=== PATIENT | female | born 1945 | race Caucasian/White ===

== ENCOUNTER → 2016-10-19 14:37 | Outpatient (CLI) | payer MEDICARE | END | disposition home or self-care (01) | LOC: D.MAMMO 10-16 16:00 | DX: Z12.31 Encounter for screening mammogram for malignant neoplasm of breast (principal) ==

== ENCOUNTER 2016-12-07 06:08 | Day surgery (SDC) | payer MEDICARE ==
[2016-12-04 15:21] LABS: HEMOGLOBIN 15.2 g/dL (12-16); MCH 33.9 pg (26.0-34.0); MCHC 34.5 g/dL (31.0-37.0); MEAN PLATELET VOLUME 9.9 fL (7.4-10.4); RBC 4.49 10x6/uL (4.00-5.40); RDW 12.4 % (11.5-14.5); WBC 7.2 10x3/uL (4.8-10.8)
[2016-12-04 15:58] LABS: ANION GAP 12.9 mmol/L (8-16); CALCIUM 9.3 mg/dL (8.5-10.1); CARBON DIOXIDE 30.7 mmol/L (21.0-32.0); CREATININE - SERUM 0.9 mg/dL (0.6-1.3); POTASSIUM - SERUM 4.6 mmol/L (3.5-5.1)
[~2016-12-07] VITALS: Ht 152.4 cm; Wt 64.4 kg
[~2016-12-07 06:08] MED LIST: CELEXA20 MG PO; SYNTHROID25 MCG PO; ZIAC 5-6.25 MG1 TAB PO
[2016-12-07 07:04] VITALS: BP 137/60; Ht 152.4 cm; Wt 64.4 kg
[2016-12-07] MEDS ORDERED: HYDROCODON-ACE1 EAC7 PO (09:42)
--- NOTE | 2016-12-07 12:13 | NUR ---
1110 PT COMPLAINS OF FEELING WARM. COVERS PULLED BACK. ORAL TEMPERATURE 97.9. PT STATES ALSO IS SLIGHTLY NAUSEATED. COOL WET COMPRESSES TO FOREHEAD & NECK. Noreen FLAHERTY R.N.
--- NOTE | 2016-12-07 14:13 | NUR ---
1220 REPORT TO Neal NUNEZ R.N.. Noreen FLAHERTY R.N.
--- NOTE | 2016-12-07 14:14 | NUR ---
1316 STATES CONTINUES TO FEEL NAUSEATED. ZOFRAN 4MG/2ML IV FOLLOWED WITH 10MML NACL FLUSH. IV #2 COMPLETE & CLAMPED. Noreen Rey.NYemi 1355 STATES STILL FEELS NAUSEATED. IV BAG # 3: LR 1000ML UP & INFUSING. SERVED ICE CHIPS. Noreen FLAHERTY R.N. 1405 REPORT TO Aisha FUENTES R.N.. Noreen FLAHERTY R.N.
--- NOTE | 2016-12-07 18:37 | OP ---
PATIENT NAME: DESIRAE MANCERA MEDICAL RECORD: [id number] :46 LOCATION:D.[facility]AC, LOCATED [facility]IN [facility] ADMISSION DATE: SURGEON: GILBERTO MANCERA MD DATE OF OPERATION: 12/07/2016 PREOPERATIVE DIAGNOSES: 1. Cholelithiasis without obstruction. 2. Right upper quadrant pain. 3. Essential hypertension. 4. Gastroesophageal reflux disease. POSTOPERATIVE DIAGNOSES: 1. Cholelithiasis without obstruction. 2. Right upper quadrant pain. 3. Essential hypertension. 4. Gastroesophageal reflux disease. PROCEDURE PERFORMED: Laparoscopic cholecystectomy. ANESTHESIA: General. COMPLICATIONS: None. SPECIMENS: Gallbladder. Case is clean contaminated. ESTIMATED BLOOD LOSS: 20 cc. OPERATIVE COURSE: After consent was obtained, the patient was taken to the operating room and placed in supine position on the operating table. Next, general anesthesia was given via endotracheal intubation. After a timeout was performed that confirmed the correct patient and procedure, the abdomen was prepped and draped in the typical sterile fashion. Local anesthetic was injected just above the umbilicus. A stab incision was made with the 11-blade scalpel. Using a 5-mm bladeless optical trocar, the abdomen was entered under direct laparoscopic vision. Adequate pneumoperitoneum was achieved. The abdominal cavity was inspected. No evidence of bowel injury. No evidence of bleeding. The patient was then placed in the steep reverse Trendelenburg position. All remaining trocars were then placed after the administration of local anesthetic, two 5-mm trocars in the right upper quadrant and 11-mm trocar in the subxiphoid position. The fundus of the gallbladder was grasped and retracted cephalad. The infundibulum was grasped and retracted laterally. The peritoneum was incised using electrocautery. Blunt dissection was performed with a [place] dissector until the critical view was obtained, cystic duct lateral, cystic artery medially, liver in the posterior window. Three clips were placed in the proximal cystic duct, 1 clip distal, and 2 clips were placed in the proximal cystic artery. The duct and artery were then transected with laparoscopic Metzenbaum scissors. The remaining portion of the gallbladder was then dissected off the liver bed using electrocautery. Once complete, it was grasped with the tenaculum, removed through the 11-mm trocar and sent for permanent pathology. Next, the operative field was copiously irrigated and suctioned. Careful attention was paid to hemostasis, which was obtained in the liver bed using electrocautery. The operative field was again copiously irrigated and suctioned. There was no evidence of bleeding, no evidence of bile OPERATIVE REPORT [id number] DESIRAE MANCERA leak. All clips, the 3 clips were intact on the cystic duct. The 2 clips were intact on the cystic artery. The remaining portion of abdominal cavity was irrigated and suctioned as well. The abdominal cavity was then inspected, there was no evidence of bowel injury. No evidence of bleeding, no evidence of bile leak. At this time, all remaining instruments removed. The abdomen was desufflated. Trocars removed. Skin was closed with 4-0 Stratafix, Mastisol and Steri-Strips. At the end of the case, all needle and instrument counts were correct. No complications occurred. The patient was extubated and transferred to the PACU in stable condition. TRANSINT:[id number] Voice Confirmation ID: [id number] DOCUMENT ID: [id number] GILBERTO MANCERA MD at 1837 CC: [id number] DICTATION DATE: 12/07/16 0941 UNIT OPERATOR: 12/07/16 1159 [facility] 12/07/16 [facility] [address] [place] [address]
== END 2016-12-07 16:05 | disposition home or self-care (01) ==
LOC: D.OPS 06:08 → D.PAN 07:50 → D.OPS 08:15
PROVIDERS: Anesthesiology
DX: K80.20 Calculus of gallbladder without cholecystitis without obstruction (principal); R10.11 Right upper quadrant pain; I10 Essential (primary) hypertension; K21.9 Gastro-esophageal reflux disease without esophagitis; E03.9 Hypothyroidism, unspecified; Z01.812 Encounter for preprocedural laboratory examination

== ENCOUNTER → 2017-06-30 09:28 | Outpatient (CLI) | payer MEDICARE ==
[2016-12-07 07:04] VITALS: BMI 27.7
[~2017-06-30 09:28] MED LIST changes: +ASPIRIN81 MG PO; +HYDROCODON-ACE1 EAC7 PO; +LOPRESSOR25 MG PO; +OMEPRAZOLE20 M1 PO; +PLAVIX75 MG PO
[2017-06-30 10:46] LABS: % SATURATION 35 % (15-55); IRON 125 ug/dl (35-150); TOTAL IRON BIND CAPACITY 352 ug/dl (260-445); UNSAT IRON BIND CAPACITY 227 ug/dl (150-375)
[2017-06-30 10:48] LABS: ALBUMIN 4.2 g/dL (3.4-5.0); BILIRUBIN - DIRECT 0.15 mg/dL (0.00-0.30); BILIRUBIN - INDIRECT 0.45 mg/dL (0.00-1.00); BILIRUBIN - TOTAL 0.6 mg/dL (0.2-1.3); PROTEIN - SERUM 7.5 g/dL (6.4-8.2)
[2017-07-01 10:19] LABS: ALPHA FETOPROTEIN -(TUMOR MRK) 5.4 ng/mL (0.0-8.3)
[2017-07-01 11:18] LABS: ANA REFLEX - DIRECT Negative (Negative)
[2017-07-02 16:13] LABS: SMOOTH MUSCLE ABS (ACTIN) 19 Units (0-19)
== END | disposition home or self-care (01) ==
LOC: D.LAB 09:28
PROVIDERS: Internal Medicine Gastroenterology
DX: D64.9 Anemia, unspecified (principal); R93.2 Abnormal findings on diagnostic imaging of liver and biliary tract

== ENCOUNTER 2017-07-20 10:42 | Inpatient (IN) | payer MEDICARE ==
[~2017-07-20] VITALS: Ht 152.4 cm; Wt 70.2 kg
--- NOTE | ~2017-07-20 | OP ---
PATIENT NAME: DESIRAE MANCERA MEDICAL RECORD: [id number] :46 LOCATION:D.M2 D.2122 ADMISSION DATE:07/21/17 SURGEON: NADER JIMÉNEZ MD DATE OF OPERATION: 07/21/2017 PTCA/STENT REPORT: For cath report please see report dictated yesterday. DESCRIPTION OF PROCEDURE: After a 6-Icelandic sheath was placed into the left femoral artery, a hockey stick guide catheter with side holes provided fair guide catheter support and this was replaced a Whisper wire across the multiple areas of 90% stenosis down to this portion, then we used a 1.5 [place] balloon, was placed distally. Using the balloon as an exchange catheter, changed out for a PT [place] wire. The 1.5 balloon was then used as the pre-deployment balloon up and down the right coronary artery. Next, a 2.5 x 50 mm [place] was again used as a pre-deployment balloon up and down from the mid right all the way back to the ostium of the right coronary. Finally, stents were placed in the following fashion. A 3.0 x 30 mm Integrity nondrug-eluting stent up to 14 atmospheres from the mid to proximal third, from the proximal third to just before the ostium a 3.0 x 30 mm Integrity stent. Finally, the ostium was addressed with a 3.0 x 8 mm Integrity nondrug-eluting stent. Final angiography revealed excellent resolution of multiple areas of 90% plus stenosis, no significant residual. CABRERA flow was 3 throughout the procedure. Heparin was used in the case. The patient placed on Plavix. Sheath closed with ExoSeal device. TRANSINT:[id number] Voice Confirmation ID: [id number] DOCUMENT ID: [id number] NADER JIMÉNEZ MD at 0950 CC: [id number] DICTATION DATE: 07/22/17 1451 REAL ESTATE ACCOUNT EXECUTIVE: 07/22/17 1513 ADM IN [place] [id number] [place] [address]
--- NOTE | ~2017-07-20 | OP ---
PATIENT NAME: DESIRAE MANCERA MEDICAL RECORD: [id number] :46 LOCATION:D.M2 D.2122 ADMISSION DATE:07/21/17 SURGEON: NADER JIMÉNEZ MD DATE OF OPERATION: 07/21/2017 PROCEDURE: Left heart catheterization, selective coronary angiography, initially right radial approach, later right femoral artery approach. CATHETERS: A 5-Indian sheath, 5/4 left and right Frederick, 5/4 pig. The procedure was well tolerated. The patient returned to the aguiar, sheath removed, and ExoSeal device and TR band was placed. FINDINGS: Left ventriculography in 30-degree CONDON view, inferobasal hypokinesis. Overall function is preserved at 50%. CORONARY ANATOMY: LEFT MAIN: Left main probably has ostial 50% to 60% stenosis with dampening upon injection. LAD: He has complex stenosis in its mid portion with excellent target distally. CIRCUMFLEX: Moderate-sized circumflex, 2 sequential stenosis of 80% with good target distally. RIGHT CORONARY ARTERY: Dominant artery has multiple areas of 90% stenosis. Obviously infarct related artery with CABRERA flow 3 distally. IMPRESSION: Multivessel coronary artery disease. Preserved LV systolic function with no wall motion abnormality. Probably best suited for coronary artery bypass grafting. Dr. Ferris was consulted for that purpose. TRANSINT:[id number] Voice Confirmation ID: [id number] DOCUMENT ID: [id number] NADER JIMÉNEZ MD at 0950 CC: [id number] DICTATION DATE: 07/21/17 1445 LICENSED ELECTRICIAN: 07/21/17 1607 ADM IN [place] [id number] [place] [address]
--- NOTE | ~2017-07-20 | HEMODYNAMI ---
PATIENT:DESIRAE MANCERA MEDICAL RECORD: [id number] : 47 LOCATION:[facility] [address] [id number] ADMISSION DATE: 07/21/17 Generatedon:07/22/201714:51 Patient name: DESIRAE MANCERA Patient #: [id number] SSN: : 1945 Date of study: 07/22/2017 Page: Of Hemodynamic Procedure Report Patient Data Patient Demographics Procedure consent was obtained First Name: DESIRAE Gender: Female Last Name: FIORDALIZA : 1945 Middle Initial: M Age: 71 year(s) Patient #: [id number] Race: Unknown Additional ID: [id number] Contact details Address: [address] [place] [address] State: [place] City: [place] Zip code: [address] Admission Admission Data Admission Date: 07/21/2017 Admission Time: 16:30 Admit Source: Other Room #: D[facility] Lab Results Lab Result Date: 07/21/2017 Lab Result Time: 0:00 Biochemistry Name Units Result Min Max BUN mg/dl 7 --(*---)-- 7 18 Creatinine mg/dl 0.7 --(*---)-- 0.6 1.3 CBC Name Units Result Min Max Hemoglobin g/dl 14.4 --(*---)-- 13.5 17.5 Procedure Procedure Types Cath Procedure PCI Procedure Coronary Stent Coronary Stent Initial Miscellaneous Procedures Moderate Sedation up to 45 minutes Procedure Description Procedure Date Procedure Date: 07/22/2017 Procedure Start Time: 14:14 Procedure End Time: 14:50 Procedure Staff Name Function Israel Alston MD Performing Physician Josie Hebert RT Monitor Tricia Pop RT Scrub Adam Guzman RN Nurse Procedure Data Cath Procedure Fluoroscopy Diagnostic fluoroscopy Total fluoroscopy Time: time: 12.9 min 12.9 min Diagnostic fluoroscopy Total fluoroscopy dose: dose: 1286 mGy 1286 mGy Contrast Material Contrast Material Type Amount (ml) Isovue 300 129 Entry Location Entry Primary Successful Side Size Upsize Upsize Entry Closure Succes sful Closure Location (Fr) 1 (Fr) 2 (Fr) Remarks Device Remarks Femoral Left 6 Fr Exoseal artery Short Estimated blood loss: 10 ml Procedure Complications No complications Procedure Medications Medication Administration Route Dosage Oxygen NC 2 l/min Lidocaine 2% added to field 20 Heparin Flush Bag added to field 2 bags (1000units/500ml NS) 0.9% NaCl I.V. 100 ml/hr Plavix P.O. 75 mg Fentanyl I.V. 50 mcg Versed I.V. 1 mg Fentanyl I.V. 50 mcg Versed I.V. 1 mg Fentanyl I.V. 50 mcg Fentanyl I.V. 50 mcg Heparin Flush Bag added to field 2 bags (1000units/500ml NS) Lopressor I.V. 2.5 mg Hemodynamics Rest HGB: 14.4 (g/dl) Heart Rate: 88 (bpm) Snapshots Pre Cath Intra NCS Post Cath Vital Signs Time Heart Resp SPO2 etCO2 NIBP (mmHg) Rhythm Pain Sedation Rate (ipm) (%) (mmHg) Status Level (bpm) 13:13:45 90 29 96 0 160/82(122) NSR 0 (11) 10(A) , No pain 13:18:05 63 23 96 33.6 157/78(111) NSR 0 (11) 10(A) , No pain 13:22:25 78 20 96 32.9 157/80(116) NSR 0 (11) 10(A) , No pain 13:26:45 79 20 95 26.2 153/77(118) NSR 0 (11) 10(A) , No pain 13:31:07 74 19 93 0 145/79(118) NSR 0 (11) 10(A) , No pain 13:35:26 78 18 94 36.7 142/78(114) NSR 0 (11) 10(A) , No pain 13:39:42 80 16 96 35.9 144/77(114) NSR 0 (11) 10(A) , No pain 13:43:54 77 17 96 0 144/74(114) NSR 0 (11) 10(A) , No pain 13:48:11 77 16 97 38.9 142/73(106) NSR 0 (11) 10(A) , No pain 13:52:28 74 18 97 34.4 140/75(110) NSR 0 (11) 10(A) , No pain 13:56:43 77 18 97 0 138/79(111) NSR 0 (11) 10(A) , No pain 14:01:00 81 17 97 38.1 148/80(103) NSR 0 (11) 10(A) , No pain 14:05:16 71 16 97 0 136/74(110) NSR 0 (11) 10(A) , No pain 14:09:32 75 16 97 37.4 133/75(113) NSR 0 (11) 10(A) , No pain 14:13:44 68 17 97 0 139/73(109) NSR 0 (11) 10(A) , No pain 14:18:02 76 16 97 33.7 150/72(118) NSR 0 (11) 9(A) , No pain 14:22:16 100 17 97 40.4 150/88(118) NSR 0 (11) 9(A) , No pain 14:26:28 82 15 99 41.1 141/80(109) NSR 0 (11) 9(A) , No pain 14:30:39 66 15 99 38.2 130/76(113) NSR 0 (11) 9(A) , No pain 14:34:52 78 16 99 41.1 135/73(111) NSR 0 (11) 9(A) , No pain 14:39:07 80 16 98 31.4 148/78(115) NSR 0 (11) 9(A) , No pain 14:43:21 82 16 99 38.9 144/84(119) NSR 0 (11) 9(A) , No pain 14:47:39 80 16 99 39.7 150/78(111) NSR 0 (11) 9(A) , No pain Medications Time Medication Route Dose Verified Delivered Reason Notes Effectiveness by by 13:17:37 Plavix P.O. 75 mg Israel Medina for [facility] Floyd Guzman RN antiplatelet therapy 13:18:44 Oxygen NC 2 Israel Medina used for l/min [facility] Floyd Guzman RN procedure 13:18:53 Lidocaine 2% added 20ml Israel Wood used for to vial [place] Gamaliel procedure field MD STORY 13:18:59 Heparin Flush added 2 Israel Owensory used for Bag to bags [place] Gamaliel procedure (1000units/500ml field MD STORY NS) 13:19:08 0.9% NaCl I.V. 100 Israel Tranie Per physician ml/hr [facility] Floyd Guzman RN, MD 14:01:22 Fentanyl I.V. 50 Israel Medina for sedation mcg [facility] Floyd Guzman RN, MD 14:01:28 Versed I.V. 1 mg Israel Tranie for sedation [facility] Floyd Guzman RN, MD 14:12:39 Fentanyl I.V. 50 Israel Tranie for sedation mcg [facility] Floyd Guzman RN, MD 14:12:45 Versed I.V. 1 mg Israel Tranie for sedation [facility] Floyd Guzman RN, MD 14:14:42 Fentanyl I.V. 50 Israel Tranie for sedation jordon Olivarez RN, MD 14:17:38 Fentanyl I.V. 50 Israel Tranie for sedation mcg [facility] Floyd Guzman RN, MD 14:17:49 Heparin Flush added 2 Israel Medina for Bag to bags [facility] Floyd Guzman RN anticoagulation (1000units/500ml field STORY NS) 14:25:54 Lopressor I.V. 2.5 Israel Tranie Per physician mg [facility]. Floyd Guzman RN, MD Procedure Log Time Note 12:58:24 Josie Counts RT(R) sent for patient. Start room use. 12:58:25 Time tracking: Regular hours 12:58:28 Plan of Care:Hemodynamics will remain stable., Cardiac rhythm will remain stable., Comfort level will be maintained., Respiratory function will remain adequate., Patient/ family verbilizes understanding of procedure., Procedure tolerated without complication., Recovers from procedure without complications.. 13:12:27 Patient received from Med II to CCL 2 Alert and oriented. Tansferred to table in Supine position. 13:12:28 Warm blankets applied, and prasanth hugger turned on for patient comfort. 13:12:29 Correct patient and procedure confirmed by team. 13:12:30 Signed procedure consent form obtained from patient. 13:12:31 ECG and BP/O2 sat monitors applied to patient. 13:12:32 Vital chart was started 13:12:34 Baseline sample Acquired. 13:12:38 Rhythm: sinus rhythm 13:12:39 Full Disclosure recording started 13:12:46 H&P Date Dictated: 07/22/2017 Within 30 days and on chart.. 13:12:47 Pre-procedure instructions explained to patient. 13:12:47 Pre-op teaching completed and patient verbalized understanding. 13:12:48 Family in waiting room. 13:12:50 Patient NPO since Midnight. 13:12:53 Is the patient allergic to Iodine/contrast media? No. 13:12:53 Was the patient premedicated? No 13:12:54 Is patient on blood thinner?Yes 13:12:57 ACC The patient was administered the following blood thiners within the last 24 hours: ACCPlavix 13:12:59 Patient diabetic? No. 13:13:01 Previous problem with sedation/anesthesia? No ? 13:13:03 Snore? Yes 13:13:03 Sleep apnea? No 13:13:04 Deviated septum? No 13:13:05 Opens mouth fully? Yes 13:13:05 Sticks out tongue? Yes 13:13:08 Airway obstruction? No ? 13:13:10 Dentures? No ? 13:13:14 Pre procedure: right dorsailis pedis pulse 2+ Normal; easily identifiable; not easily obliterated 13:13:16 Pre procedure: left dorsailis pedis pulse 2+ Normal; easily identifiable; not easily obliterated 13:13:19 Patient pain scale 0/10 ?. 13:13:30 IV patent on arrival in right forearm with 0.9% NaCl at [facility]. 13:13:34 Lab results completed and on chart. 13:13:39 Left groin area was prepped with chlora-prep and draped in sterile fashion 13:13:39 Alarms reviewed by R. N. 13:13:40 Sharps counted by scrub and verified by R.N. 13:14:34 Use device set CATH PACK 13:14:36 Use device set TINO PCI 13:14:37 ACIST Syringe (77010) opened to sterile field. 13:14:38 ACIST Hand Control (13013) opened to sterile field. 13:14:39 ACIST Manifold (67034) opened to sterile field. 13:14:41 Medline Cath Pack ([id number]) opened to sterile field. 13:14:42 Bag Decanter (2002S) opened to sterile field. 13:14:44 DIAGNOSTIC WIRE .035 260cm J wire (001107) opened to sterile field. 13:14:45 INFLATOR Merit BasixCompak (ZE2491) opened to sterile field. 13:14:46 SHEATH 6FR [employer] (TON795) opened to sterile field. 13:14:49 WHISPER 300cm guide wire ([id number]) opened to sterile field. 13:14:59 PERCUTANEOUS ENTRY 19GA needle opened to sterile field. 13:17:37 Plavix 75 mg P.O. was administered by Adam Guzman RN; for antiplatelet therapy; 13:18:44 Oxygen 2 l/min NC was administered by Adam Guzman RN; used for procedure; 13:18:53 Lidocaine 2% 20ml vial added to field was administered by Israel Alston MD; used for procedure; 13:18:59 Heparin Flush Bag (1000units/500ml NS) 2 bags added to field was administered by Israel Alston MD; used for procedure; 13:19:08 0.9% NaCl 100 ml/hr I.V. was administered by Adam Guzman RN; Per physician; 13:24:46 Zero performed for pressure channel P1 13:52:43 Procedure delayed due to: Physician in another procedure 13:53:14 Patient resting comfortably 14:00:50 Final Timeout: patient, procedure, and site verified with staff and physician. All members of the team are in agreement. 14:00:53 Left groin site verified by team. 14:00:55 Physical assessment completed. ASA score P 2 - A patient with mild systemic disease as per Israel Alston MD. 14:00:59 Sedation plan: IV Moderate Sedation Medication:Versed, Fentanyl 14:01:22 Fentanyl 50 mcg I.V. was administered by Adam Guzman RN; for sedation; 14:01:28 Versed 1 mg I.V. was administered by Adam Guzman RN; for sedation; 14:12:39 Fentanyl 50 mcg I.V. was administered by Adam Guzman RN; for sedation; 14:12:45 Versed 1 mg I.V. was administered by Adam Guzman RN; for sedation; 14:13:04 Procedure started. 14:14:03 Local anesthetic to left femerol artery with Lidocaine 2% by Israel Alston MD.INITIAL ACCESS ONLY 14:14:42 Fentanyl 50 mcg I.V. was administered by Adam Guzman RN; for sedation; 14:14:51 A 6 Fr Short sheath was inserted into the Left Femoral artery 14:15:18 GUIDE 6FR HS I SH catheter ([id number]) opened to sterile field. 14:15:33 6 Fr HS I SH guide catheter was inserted over the wire 14:17:38 Fentanyl 50 mcg I.V. was administered by Adam Guzman RN; for sedation; 14:17:49 Heparin Flush Bag (1000units/500ml NS) 2 bags added to field was administered by Adam Guzman RN; for anticoagulation; 14:21:21 Whisper wire advanced. 14:21:43 Inflation number: 1 A EMERGE OTW 2.5 x 15 balloon ([id number]) was prepped and advanced across the Mid RCA, then inflated to 8 HIGINIO for 0:07 (min:sec). 14:22:56 Balloon removed over the wire. 14:25:51 Wire removed. 14:25:54 Lopressor 2.5 mg I.V. was administered by Adam Guzman RN; Per physician; 14:26:00 Choice PT ES wire advanced. 14:26:24 Inflation number: 2 A EMERGE OTW 1.5 x 15 balloon ([id number]) was prepped and advanced across the Mid RCA, then inflated to 12 HIGINIO for 0:13 (min:sec). 14:26:49 Inflation number: 3 The EMERGE OTW 1.5 x 15 balloon ([id number]) was reinflated across the Mid RCA, to 12 HIGINIO for 0:14 (min:sec). 14:27:12 Inflation number: 4 The EMERGE OTW 1.5 x 15 balloon ([id number]) was reinflated across the Mid RCA, to 12 HIGINIO for 0:15 (min:sec). 14:27:29 Inflation number: 5 The EMERGE OTW 1.5 x 15 balloon ([id number]) was reinflated across the Mid RCA, to 12 HIGINIO for 0:09 (min:sec). 14:27:53 Balloon removed over the wire. 14:30:26 Inflation number: 6 The EMERGE OTW 2.5 x 15 balloon ([id number]) was reinflated across the Mid RCA, to 8 HIGINIO for 0:18 (min:sec). 14:30:50 Inflation number: 7 The EMERGE OTW 2.5 x 15 balloon ([id number]) was reinflated across the Mid RCA, to 10 HIGINIO for 0:12 (min:sec). 14:31:04 Inflation number: 8 The EMERGE OTW 2.5 x 15 balloon ([id number]) was reinflated across the Mid RCA, to 12 HIGINIO for 0:15 (min:sec). 14:31:47 Inflation number: 9 The EMERGE OTW 2.5 x 15 balloon ([id number]) was reinflated across the Mid RCA, to 12 HIGINIO for 0:14 (min:sec). 14:33:05 Inflation number: 10 The EMERGE OTW 2.5 x 15 balloon ([id number]) was reinflated across the Mid RCA, to 14 HIGINIO for 0:13 (min:sec). 14:33:14 Balloon removed over the wire. 14:36:20 Inflation Number: 11 A INTEGRITY OTW 3.0 X 30 stent ([id number]) was prepped and advanced across the Mid RCA. The stent was deployed at 14 HIGINIO for 0:28 (min:sec). 14:36:41 Stent catheter was removed intact over wire. 14:40:02 Inflation Number: 12 A INTEGRITY RX 3.0 x 30 stent ([id number]) was prepped and advanced across the Mid RCA. The stent was deployed at 14 HIGINIO for 0:32 (min:sec). 14:41:55 Stent catheter was removed intact over wire. 14:44:01 Inflation Number: 1 A INTEGRITY OTW 3.0 X 9 stent ([id number]) was prepped and advanced across the Prox RCA. The stent was deployed at 14 HIGINIO for 0:32 (min:sec). 14:44:36 Stent catheter was removed intact over wire. 14:44:37 Wire removed. 14:44:38 Guide catheter removed. 14:45:01 Sheath removed intact; hemostasis achieved with Exoseal to the Left Femoral artery. 14:45:08 Procedure ended.(Physican Out) 14:47:11 Fluoroscopy time 12.90 minutes. 14:47:27 Flurop Dose total: 1286 14:47:27 Fluoroscopy dose: 1286 mGy 14:47:32 Contrast amount:Isovue 300 129ml. 14:47:33 Sharps counted by scrub and verified by R.N. 14:47:36 Insertion/operative site no bleeding no hematoma. 14:47:46 Post-op/insertion site Left Femoral artery dressed using a 4 x 4 and Tegaderm. 14:47:50 Post left femerol artery:stable, clean and dry 14:47:52 Post Procedure Pulses reassessed and unchanged 14:47:54 Post-procedure physical assessment completed. ASA score P 2 - A patient with mild systemic disease as per Israel Alston MD. 14:47:57 Post procedure rhythm: unchanged. 14:48:00 Estimated blood loss: 10 ml 14:48:01 Post procedure instruction explained to patient.Patient verbalizes understanding. 14:48:01 Patient needs reinforcement of post procedure teaching. 14:48:14 Procedure type changed to Cath procedure, PCI procedure, Coronary Stent, Coronary Stent Initial, Miscellaneous Procedures, Moderate Sedation up to 45 minutes 14:48:19 Procedure Complication : No complications 14:48:21 See physician's report for complete and final results. 14:48:41 EXOSEAL 6Fr (EX600) opened to sterile field. 14:49:08 Tegaderm 4 x 4 (1626W) opened to sterile field. 14:49:29 CHOICE PT Extra Support J 300cm guide wire ([id number]) opened to sterile field. 14:50:13 Procedure and supply charges have been captured, reviewed, submitted and are correct. 14:50:15 Vital chart was stopped 14:50:18 Report given to PCU. 14:50:20 Patient transfered to PCU with Bed. 14:50:22 Procedure ended. 14:50:22 Full Disclosure recording stopped 14:50:31 End room use (Document Last) Intervention Summary Intervention Notes Time ActionType Lesion and Equipment Action# Pressure Duration Attributes Used 14:21:43 Inflate Mid RCA EMERGE OTW 1 8 00:07 balloon 2.5 x 15 balloon ([id number]) 14:26:24 Inflate Mid RCA EMERGE OTW 2 12 00:13 balloon 1.5 x 15 balloon ([id number]) 14:26:49 Reinflate Mid RCA EMERGE OTW 3 12 00:14 balloon 1.5 x 15 balloon ([id number]) 14:27:12 Reinflate Mid RCA EMERGE OTW 4 12 00:15 balloon 1.5 x 15 balloon ([id number]) 14:27:29 Reinflate Mid RCA EMERGE OTW 5 12 00:09 balloon 1.5 x 15 balloon ([id number]) 14:30:26 Reinflate Mid RCA EMERGE OTW 6 8 00:18 balloon 2.5 x 15 balloon ([id number]) 14:30:50 Reinflate Mid RCA EMERGE OTW 7 10 00:12 balloon 2.5 x 15 balloon ([id number]) 14:31:04 Reinflate Mid RCA EMERGE OTW 8 12 00:15 balloon 2.5 x 15 balloon ([id number]) 14:31:47 Reinflate Mid RCA EMERGE OTW 9 12 00:15 balloon 2.5 x 15 balloon ([id number]) 14:33:05 Reinflate Mid RCA EMERGE OTW 10 14 00:13 balloon 2.5 x 15 balloon ([id number]) 14:36:20 Place stent Mid RCA INTEGRITY 11 14 00:28 OTW 3.0 X 30 stent ([id number]) 14:40:02 Place stent Mid RCA INTEGRITY RX 12 14 00:32 3.0 x 30 stent ([id number]) 14:44:01 Place stent Prox RCA INTEGRITY 1 14 00:32 OTW 3.0 X 9 stent ([id number]) Device Usage Item Name Manufacture Quantity Catalog Number Hospital Part Current Min imal Lot# / Charge Number Stock Stock Serial# Code ACIST Acist 1 47190 319641 204527 601792 20 Syringe Medical (62252) Systems Inc ACIST Hand Acist 1 01198 515991 065330 897973 5 Control Medical (72263) Systems Inc ACIST Acist 1 64985 519204 122200 305420 5 Manifold Medical (18391) Systems Inc Medline Cath Cardinal 1 [id number] 948740 21685 894270 5 Alternative [employer] Technologies ([id number]) Bag Decanter Microtek 1 234215 95262 534971 5 () Medical Inc. DIAGNOSTIC [facility] 1 783909 760777 435297 158632 30 WIRE .035 260cm J wire (354032) INFLATOR Merit 1 PR8640 593443 437658 747251 15 Nexgate BasixCompak (GH9346) SHEATH 6FR Terumo 1 ZED127 054548 066824 456221 40 [employer] (AZQ165) WHISPER Cole 1 [id number] 460807 778590 578386 5 300cm guide Vascular wire ([id number]) PERCUTANEOUS [facility] 1 I54424 539171 565245 5 ENTRY 19GA needle GUIDE 6FR HS Medtronic 1 [id number] 621033 17838 299962 1 I SH catheter ([id number]) EMERGE OTW [place] 1 [id number] 937401 537321 260463 5 [id number] 2.5 x 15 Scientific balloon ([id number]) EMERGE OTW [place] 1 [id number] 865906 543958 249514 5 [id number] 1.5 x 15 Scientific balloon ([id number]) INTEGRITY Medtronic 1 [id number] 639577 232685 0 [id number] OTW 3.0 X 30 stent ([id number]) INTEGRITY RX Medtronic 1 [id number] 070666 388453 506638 5 [id number] 3.0 x 30 stent ([id number]) INTEGRITY Medtronic 1 [id number] 040518 840243 8 [id number] OTW 3.0 X 9 stent ([id number]) EXOSEAL 6Fr Cardinal 1 EX600 315773 988484 935378 10 (EX600) Health Tegaderm 4 x 3M 1 1626W 419555 061745 033948 5 4 (1626W) CHOICE PT [place] 1 [id number] 909066 552882 947414 5 Extra Scientific Support J 300cm guide wire ([id number]) Signature Audit [place] Stage Time Signature Unsigned Intra-Procedure 07/22/2017 Josie 2:50:56 PM Counts RT(R) Signatures Monitor : Josie Signature : Counts RT Date : Time : [facility] [address] [place] [address]
--- NOTE | ~2017-07-20 | CN ---
PATIENT NAME:DESIRAE MANCERA MEDICAL RECORD: [id number] : 47 LOCATION:[facility] D.2122 ADMIT DATE: 07/21/17 ACCOUNT: [id number] CONSULTING PHYSICIAN: NADER JIMÉNEZ MD REFERRING PHYSICIAN: LYNDA HERNANDEZ MD DATE OF CONSULTATION: 07/21/2017 HISTORY OF PRESENT ILLNESS: A 71-year-old female with no known history of coronary artery disease has a history of hypertension, longstanding, has been noticing intermittent chest pain radiating to the back, left shoulder and jaw for the past 5 to 6 weeks, had a rest episode yesterday. No acute ECG changes; however, cardiac enzymes are elevated consistent with NSTEMI. We are asked to see her concerning her cardiovascular status. PAST MEDICAL HISTORY: Includes: 1. History of hypertension. 2. Anxiety. 3. Hypothyroidism, on replacement. 4. Gastroesophageal reflux disease. ALLERGIES: None known. MEDICATIONS: Include Ziac 5/6.25, Celexa 20 every day, omeprazole 20 q.h.s., Synthroid 25 mcg every day. SOCIAL HISTORY: , nonsmoker. Previously exercised; however, has not been exercising since her a year ago. She is able to take care of all ADLs easily. REVIEW OF SYSTEMS: The patient reports easy bruising but reports no swollen glands. The patient reports no fever, no night sweats, no significant weight gain, no significant weight loss. No significant exercise tolerance. The patient reports no dry eyes, no irritation, no vision change. Patient reports no difficulty hearing and no ear pain. Patient reports no frequent nose bleeds or nose and sinus problems. Patient reports on arm pain on exertion. No shortness of breath while lying down. No history of heart murmur. Patient reports no cough, no wheezing or coughing up blood. Patient reports no abdominal pain, no vomiting. Normal appetite. No diarrhea and not vomiting blood. No nausea and no constipation. Patient reports no incontinence. No difficulty urinating. No hematuria. No increased frequency. Patient reports no muscle aches. No weakness, no arthralgias, no back pain. No swelling of the extremities. Patient reports no abnormal mole, no jaundice, no rashes. Reports no loss of consciousness. No weakness and no numbness. No seizures, dizziness, or headaches. The patient reports no depression, no sleep disturbance, feeling safe in a relationship and no alcohol abuse. Patient reports on fatigue. Reports no runny nose or sinus pressure. No itching, no hives, and no frequent sneezing. PHYSICAL EXAMINATION: GENERAL: Pleasant female in no acute distress. VITAL SIGNS: Blood pressure 95/46, pulse 54 and regular. HEENT: Normocephalic, atraumatic. NECK: No JVD or bruit. HEART: Regular, questionable S4 gallop. LUNGS: Good air excursion. CONSULT REPORT [id number] DESIRAE MANCERA ABDOMEN: Soft, nontender. EXTREMITIES: Pulses 2+. There is no edema. NEUROLOGIC: Grossly intact. DIAGNOSTIC DATA: ECG shows sinus froy only. IMPRESSION: NSTEMI, mild recurrence of pain this a.m. We will plan for diagnostic coronary angiography, intervention based on the above. TRANSINT:[id number] Voice Confirmation ID: [id number] DOCUMENT ID: [id number] NADER JIMÉNEZ MD at 0950 CC: [id number] DICTATION DATE: 07/21/17926 MUSIC MINISTER: 07/21/17 1302 ADM IN [facility] [address] [place] [id number]
--- NOTE | ~2017-07-20 | HEMODYNAMI ---
PATIENT:DESIRAE MANCERA MEDICAL RECORD: [id number] : 47 [address] [id number] ADMISSION DATE: 07/20/17 Generatedon:07/21/201714:40 Patient name: DESIRAE MANCERA Patient #: [id number] SSN: : 1945 Date of study: 07/21/2017 Page: Of Hemodynamic Procedure Report Patient Data Patient Demographics Procedure consent was obtained First Name: DESIRAE Gender: Female Last Name: FIORDALIZA : 1945 Middle Initial: M Age: 71 year(s) Patient #: [id number] Race: Unknown Additional ID: [id number] Contact details Address: [address] [place] [address] State: [place] City: [place] Zip code: [address] Admission Admission Data Admission Date: 07/20/2017 Admission Time: 16:53 Admit Source: Other Room #: D.[facility] Lab Results Lab Result Date: 07/21/2017 Lab Result Time: 0:00 Biochemistry Name Units Result Min Max BUN mg/dl 7 --(*---)-- 7 18 Creatinine mg/dl 0.7 --(*---)-- 0.6 1.3 CBC Name Units Result Min Max Hemoglobin g/dl 14.4 --(*---)-- 13.5 17.5 Procedure Procedure Types Cath Procedure Diagnostic Procedure C [facility] w/Coronaries Miscellaneous Procedures Moderate Sedation up to 15 minutes Procedure Description Procedure Date Procedure Date: 07/21/2017 Procedure Start Time: 14:19 Procedure End Time: 14:35 Procedure Staff Name Function Israel Alston MD Performing Physician Isa Lin RT Monitor Eva Hernandez RT Scrub Adam Guzman RN Nurse Procedure Data Cath Procedure Fluoroscopy Diagnostic fluoroscopy Total fluoroscopy Time: 3.4 time: 3.4 min min Diagnostic fluoroscopy Total fluoroscopy dose: 364 dose: 364 mGy mGy Contrast Material Contrast Material Type Amount (ml) Isovue 300 66 Entry Location Entry Primary Successful Side Size Upsize Upsize Entry Closure Cerrato ccessful Closure Location (Fr) 1 (Fr) 2 (Fr) Remarks Device Remarks Radial Right 6 Fr Mechanical TR band artery Short Compression Femoral Right 6 Fr Exoseal artery Short Estimated blood loss: 10 ml Diagnostic catheters Device Type Used For End Catheter Placement DIAGNOSTIC [place] 110cm 5 Procedure Fr catheter ([id number]) DIAGNOSTIC JL 3.5 5Fr Procedure catheter ([id number]) Procedure Complications No complications Procedure Medications Medication Administration Route Dosage 0.9% NaCl I.V. 100 ml/hr Oxygen NC 2 l/min Heparin Flush Bag added to field 2 bags (1000units/500ml NS) Lidocaine 2% added to field 20 Radial Cocktail added to field 1 syringe (Verapomil 2mg/Nitro 400mcg/Heparin 1500units) Radial Cocktail I.A. 1 syringe (Verapomil 2mg/Nitro 400mcg/Heparin 1500units) Versed I.V. 2 mg Fentanyl I.V. 100 mcg Hemodynamics Rest Heart Rate: 84 (bpm) Pressure Samples Time Site Value (mmHg) Purpose Heart Use Rate(bpm) 14:24 LV 104/15,19 EDP 76 Gradients Valve Time Site Site Mean SEP/DFP Peak To Heart Use 1 2 (mmHg) (sec/min) Peak Rate (mmHg) (bpm) Aortic 14:25 LV AO 90 Snapshots Pre Cath Intra NCS Post Cath Vital Signs Time Heart Resp SPO2 etCO2 NIBP (mmHg) Rhythm Pain Sedation Rate (ipm) (%) (mmHg) Status Level (bpm) 14:14:39 84 16 100 38 147/77(119) NSR 0 (11) 10(A) , No pain 14:19:17 78 14 100 141/70(108) NSR 0 (11) 10(A) , No pain 14:23:58 89 22 94 101/49(74) NSR 0 (11) 10(A) , No pain 14:29:15 76 35 94 38.8 122/60(93) NSR 0 (11) 9(A) , No pain 14:33:54 77 34 96 39.5 134/58(103) NSR 0 (11) 9(A) , No pain Medications Time Medication Route Dose Verified Delivered Reason Notes Effectiveness by by 14:21:07 0.9% NaCl I.V. 100 Naveen Naveen Per ml/hr Miroslava Colorado physician RN RN 14:21:17 Oxygen NC 2 l/min Naveen Naveen Per Miroslava Colorado physician RN RN 14:21:29 Heparin Flush added 2 bags Naveen Naveen used for Bag to Lorigan Lorigan procedure (1000units/500ml field RN RN NS) 14:21:44 Lidocaine 2% added 20ml Naveen Naveen for local to vial Lorigan Lorigan anesthetic field RN RN 14:21:55 Radial Cocktail added 1 Naveen Naveen used for (Verapomil to syringe Lorigan Lorigan procedure 2mg/Nitro field RN RN 400mcg/Heparin 1500units) 14:22:04 Radial Cocktail I.A. 1 Naveen Israel for (Verapomil syringe Lorigan Gamaliel vasodilation 2mg/Nitro FRED STORY 400mcg/Heparin 1500units) 14:22:29 Versed I.V. 2 mg Naveen Naveen for sedation Miroslava Colorado RN, RN 14:22:39 Fentanyl I.V. 100 mcg Naveen Naveen for sedation Miroslava Colorado RN director product management Log Time Note 13:49:52 Informed consent obtained and on chart 13:50:20 Admit Source: Other 13:50:21 Diagnostic Cath status Elective 13:50:23 Adam Guzman RN sent for patient. Start room use. 13:50:24 Time tracking: Regular hours 13:50:27 Plan of Care:Hemodynamics will remain stable., Cardiac rhythm will remain stable., Comfort level will be maintained., Respiratory function will remain adequate., Patient/ family verbilizes understanding of procedure., Procedure tolerated without complication., Recovers from procedure without complications.. 13:53:52 Lab Result : BUN 7 mg/dl 13:53:52 Lab Result : Creatinine 0.7 mg/dl 13:53:52 Lab Result : Hemoglobin 14.4 g/dl 13:53:55 Lab results completed and on chart. 14:03:14 Patient received from Med II to CCL 1 Alert and oriented. Tansferred to table in Supine position. 14:03:15 Warm blankets applied, and prasanth hugger turned on for patient comfort. 14:03:15 Correct patient and procedure confirmed by team. 14:03:16 ECG and BP/O2 sat monitors applied to patient. 14:13:47 Vital chart was started 14:13:52 Baseline sample Acquired. 14:14:00 Rhythm: sinus rhythm 14:14:01 Full Disclosure recording started 14:14:24 H&P Date Dictated: 07/20/2017 Within 30 days and on chart., H&P Addendum completed by physician on day of procedure. (MUST COMPLETE FOR ALL OUTPATIENTS). 14:14:26 Pre-procedure instructions explained to patient. 14:14:35 Family in waiting room. 14:14:38 Patient NPO since Midnight. 14:14:49 Is the patient allergic to Iodine/contrast media? No. 14:14:52 Was the patient premedicated? Yes 14:17:49 Patient diabetic? No. 14:17:51 ----Pre-sedation anethsthesia assessment.---- 14:17:54 Previous problem with sedation/anesthesia? No ? 14:17:58 Snore? Yes 14:18:00 Sleep apnea? No 14:18:02 Deviated septum? No 14:18:03 Opens mouth fully? Yes 14:18:05 Sticks out tongue? Yes 14:18:07 Airway obstruction? No ? 14:18:09 Dentures? No ? 14:18:15 Patient pain scale 0/10 ?. 14:18:24 IV patent on arrival in right hand with 0.9% NaCl at [facility]. 14:18:37 Right Radial & Right Groin area was prepped with chlora-prep and draped in sterile fashion 14:18:38 Alarms reviewed by R. N. 14:18:39 Sharps counted by scrub and verified by R.N. 14:18:40 Physician arrived 14:18:41 --------ALL STOP TIME OUT------ 14:18:42 Final Timeout: patient, procedure, and site verified with staff and physician. All members of the team are in agreement. 14:18:45 Right Radial & Right Groin site verified by team. 14:18:49 Physical assessment completed. ASA score P 2 - A patient with mild systemic disease as per Israel Alston MD. 14:18:54 Sedation plan: IV Moderate Sedation Medication:Versed, Fentanyl 14:19:01 Use device set Radial Dx or PCI 14:19:03 ACIST Syringe (85021) opened to sterile field. 14:19:04 Medline Cath Pack ([id number]) opened to sterile field. 14:19:05 Bag Decanter (2002S) opened to sterile field. 14:19:06 SHEATH 6FR Slender ([id number]) opened to sterile field. 14:19:07 DIAGNOSTIC WIRE .035 260cm J wire (053625) opened to sterile field. 14:19:08 ACIST Hand Control (32045) opened to sterile field. 14:19:09 ACIST Manifold (38570) opened to sterile field. 14:19:10 Tegaderm 4 x 4 (1626W) opened to sterile field. 14:19:13 MBrace Wrist Support ([id number]) opened to sterile field. 14:19:19 Procedure started. 14:19:24 Local anesthetic to right radial artery with Lidocaine 1% by Israel Alston MD.INITIAL ACCESS ONLY 14:20:51 A 6 Fr Short sheath was inserted into the Right Radial artery 14:21:07 0.9% NaCl 100 ml/hr I.V. was administered by Naveen Colorado RN; Per physician; 14:21:17 Oxygen 2 l/min NC was administered by Naveen Colorado RN; Per physician; 14::29 Heparin Flush Bag (1000units/500ml NS) 2 bags added to field was administered by Naveen Colorado RN; used for procedure; 14::44 Lidocaine 2% 20ml vial added to field was administered by Naveen Colorado RN; for local anesthetic; 14::55 Radial Cocktail (Verapomil 2mg/Nitro 400mcg/Heparin 1500units) 1 syringe added to field was administered by Naveen Colorado RN; used for procedure; 14:22:04 Radial Cocktail (Verapomil 2mg/Nitro 400mcg/Heparin 1500units) 1 syringe I.A. was administered by Israel Alston MD; for vasodilation; 14:22:29 Versed 2 mg I.V. was administered by Naveen Colorado RN; for sedation; 14:22:39 Fentanyl 100 mcg I.V. was administered by Naveen Colorado RN; for sedation; 14:23:46 A DIAGNOSTIC [place] 110cm 5 Fr catheter (600698) was advanced over the wire and used for Procedure. 14:23:56 LV angiography performed. 14:23:59 LV gram done using CONDON 14:25:22 EF : 60 % 14:25:47 RCA angiography performed. 14:27:05 SHEATH 6FR [place] (ISG708) opened to sterile field. 14:27:48 Local anesthetic to right femoral artery with Lidocaine 2% by Israel Alston MD.ADDITIONAL ACCESS 14:29:06 A 6 Fr Short sheath was inserted into the Right Femoral artery 14:31:19 A DIAGNOSTIC JL 3.5 5Fr catheter ([id number]) was advanced over the wire and used for Procedure. 14:31:21 LCA angiography performed. 14:33:01 EXOSEAL 5Fr (EX500) opened to sterile field. 14:33:02 TR BAND Standard ([id number]) opened to sterile field. 14:33:08 Catheter removed. 14:33:43 Sheath removed intact; hemostasis achieved with Mechanical Compression to the Right Radial artery. 14:33:53 Sheath removed intact; hemostasis achieved with Exoseal to the Right Femoral artery. 14:33:56 Procedure ended.(Physican Out) 14:34:10 Fluoroscopy time 03.40 minutes. 14:34:14 Fluoroscopy dose: 364 mGy 14:34:14 Flurop Dose total: 364 14:34:19 Contrast amount:Isovue 300 66ml. 14:34:21 Sharps counted by scrub and verified by R.N. 14:34:26 TR band inflated with 11cc of air. 14:34:28 Insertion/operative site no bleeding no hematoma. 14:34:33 Post-op/insertion site Right Femoral artery dressed using a 4 x 4 and Tegaderm. 14:34:38 Post right femoral artery:stable 14:34:40 Post Procedure Pulses reassessed and unchanged 14:34:44 Post-procedure physical assessment completed. ASA score P 3 - A patient with severe systemic disease as per Israel Alston MD. 14:34:50 Estimated blood loss: 10 ml 14:34:51 Post procedure instruction explained to patient.Patient verbalizes understanding. 14:35:05 Procedure type changed to Cath procedure, Diagnostic procedure, LHC, LHC w/Coronaries, Miscellaneous Procedures, Moderate Sedation up to 15 minutes 14:35:05 Procedure and supply charges have been captured, reviewed, submitted and are correct. 14:35:37 Procedure Complication : No complications 14:35:40 Vital chart was stopped 14:35:41 See physician's report for complete and final results. 14:35:43 Report given to Pre/Post Procedure Room. 14:35:47 Patient transfered to Pre/Post Procedure Room with Stretcher. 14:35:52 Procedure ended. 14:35:52 Full Disclosure recording stopped 14:35:54 End room use (Document Last) Device Usage Item Name Manufacture Quantity Catalog Hospital Part Current Minima l Lot# / Number Charge Number Stock Stock Serial# Code ACIST Acist 1 35488 872536 712644 751006 20 Syringe Medical (95095) Systems Inc Medline Cath Cardinal 1 [id number] 352760 93768 287573 5 Pack Health ([id number]) Bag Decanter Microtek 1 2001S 654994 12837 429128 5 () Medical Inc. SHEATH 6FR Terumo 1 [id number] 711139 726106 834011 40 Slender ([id number]) DIAGNOSTIC [facility] [place] 1 638519 861275 682586 869852 30 WIRE .035 260cm J wire (715231) ACIST Hand Acist 1 13794 157160 341713 477668 5 Control Medical (80679) Systems Inc ACIST Acist 1 65368 376615 087844 700467 5 Manifold Medical (40889) Systems Inc Tegaderm 4 x 3M 1 1626W 021719 971428 762922 5 4 (1626W) MBrace Wrist Advanced 1 140-0250-00 165693 18959 494785 5 Support Vascular ([id number]) Dynamics DIAGNOSTIC Terumo 1 40-5013 996913 560949 858718 5 [place] 110cm 5 Fr catheter (003814) SHEATH 6FR Terumo 1 AHZ020 149784 073399 843244 40 [place] (ACZ157) DIAGNOSTIC Cardinal 1 [id number] 354821 968488 620839 5 JL 3.5 5Fr Health catheter (039007Y) EXOSEAL 5Fr Cardinal 1 EX500 896181 134370 974144 10 (EX500) Health TR BAND Terumo 1 [id number] 334748 900731 797656 40 Standard ([id number]) Signature Audit [place] Stage Time Signature Unsigned Intra-Procedure 07/21/2017 Isa Lin 2:40:14 PM RT(R) Signatures Monitor : Isa Lin Signature : RT Date : Time : [place] [id number] [place] [address]
[~2017-07-20 10:42] MED LIST changes: -ASPIRIN81 MG PO; -LOPRESSOR25 MG PO; -OMEPRAZOLE20 M1 PO; -PLAVIX75 MG PO
[2017-07-20 10:58] LABS: BASOPHILS 0.2 % (0-2); EOSINOPHILS 1.3 % (0-7); HEMATOCRIT 41.8 % (36.0-48.0); HEMOGLOBIN 14.4 g/dL (12-16); IMMATURE GRANULOCYTES 0.2 % (0-5); MCH 33.6 pg (26.0-34.0); MCHC 34.4 g/dL (31.0-37.0); MCV 97.7 fL (80.0-100.0); MEAN PLATELET VOLUME 10.3 fL (7.4-10.4); MONOCYTES 7.2 % (2-11); NEUTROPHILS 45.1 % (40-80); PLATELET COUNT 218 10x3/uL (130-400); RBC 4.28 10x6/uL (4.00-5.40); RDW 12.3 % (11.5-14.5); WBC 8.4 10x3/uL (4.8-10.8)
[2017-07-20 11:16] LABS: ALBUMIN 3.9 g/dL (3.4-5.0); ALKALINE PHOSPHATASE 76 U/L (46-116); ALT (SGPT) 191 U/L (10-68); BILIRUBIN - TOTAL 0.52 mg/dL (0.2-1.3); CALC OSMOLALITY 278 mosm/kg (275-300); CALCIUM 8.8 mg/dL (8.5-10.1); CARBON DIOXIDE 29.1 mmol/L (21.0-32.0); CHLORIDE - SERUM 101 mmol/L (98-107); CREATININE - SERUM 0.7 mg/dL (0.6-1.3); GLUCOSE 130 mg/dL (74-106); POTASSIUM - SERUM 4.4 mmol/L (3.5-5.1); PROTEIN - SERUM 7.4 g/dL (6.4-8.2); SODIUM 140 mmol/L (136-145); UREA NITROGEN 7 mg/dL (7-18); eGFR NON AFRICAN AMERICAN 88 mL/min (90-120)
[2017-07-20 11:28] LABS: CKMB 0.7 U/L (0.0-3.6); CREATINE KINASE 84 UL (21-215); HDL CHOLESTEROL 48 mg/dL (32-96); TRIGLYCERIDE 167 mg/dL (30-200)
[2017-07-20 11:31] LABS: TROPONIN-I < 0.017 ng/mL (0.000-0.060)
[2017-07-20 11:38] LABS: CHOL - HDL RATIO 5.2 ratio (2.3-4.1); CHOLESTEROL, TOTAL 251 mg/dL (0-200); LDL CHOLESTEROL 170 mg/dL (0-100); LDL-HDL RATIO 3.5 ratio (1.5-3.5)
[2017-07-20 21:53] VITALS: BP 98/50; BMI 28.1
[2017-07-20] MEDS ORDERED: OMEPRAZOLE20 M1 PO (22:43)
[2017-07-20 23:01] LABS: CKMB 48.1 U/L (0.0-3.6)
[2017-07-20 23:03] LABS: CREATINE KINASE 508 UL (21-215)
[2017-07-20 23:04] LABS: TROPONIN-I 4.615 ng/mL (0.000-0.060)
[2017-07-21] VITALS: BP 136/61
[2017-07-21 04:00] VITALS: BP 95/46
[2017-07-21 04:43] LABS: CKMB 81.9 U/L (0.0-3.6)
[2017-07-21 04:45] LABS: CREATINE KINASE 759 UL (21-215); TROPONIN-I 8.938 ng/mL (0.000-0.060)
[2017-07-21 08:06] LABS: BASOPHILS 0.1 % (0-2); EOSINOPHILS 0.1 % (0-7); HEMATOCRIT 36.8 % (36.0-48.0); HEMOGLOBIN 12.7 g/dL (12-16); IMMATURE GRANULOCYTES 0.2 % (0-5); LYMPHOCYTES 21.6 % (15-50); MCH 33.5 pg (26.0-34.0); MCHC 34.5 g/dL (31.0-37.0); MCV 97.1 fL (80.0-100.0); MEAN PLATELET VOLUME 11.1 fL (7.4-10.4); PLATELET COUNT 212 10x3/uL (130-400); RBC 3.79 10x6/uL (4.00-5.40); RDW 12.3 % (11.5-14.5); WBC 9.9 10x3/uL (4.8-10.8)
[2017-07-21 08:17] LABS: CALC OSMOLALITY 277 mosm/kg (275-300); CALCIUM 8.5 mg/dL (8.5-10.1); CARBON DIOXIDE 24.3 mmol/L (21.0-32.0); CHLORIDE - SERUM 103 mmol/L (98-107); CREATININE - SERUM 0.7 mg/dL (0.6-1.3); GLUCOSE 154 mg/dL (74-106); POTASSIUM - SERUM 4.2 mmol/L (3.5-5.1); SODIUM 138 mmol/L (136-145); eGFR NON AFRICAN AMERICAN 88 mL/min (90-120)
[2017-07-21 08:20] LABS: UREA NITROGEN 11 mg/dL (7-18)
[2017-07-21 11:01] VITALS: BP 105/46
[2017-07-21 12:28] VITALS: BMI 28.1
[2017-07-21 13:41] VITALS: BP 118/49
[2017-07-21 19:00] VITALS: BP 93/48
[2017-07-22 04:00] VITALS: BP 113/55
[2017-07-22 05:13] LABS: BASOPHILS 0.2 % (0-2); EOSINOPHILS 0.2 % (0-7); HEMATOCRIT 35.5 % (36.0-48.0); HEMOGLOBIN 11.9 g/dL (12-16); IMMATURE GRANULOCYTES 0.1 % (0-5); LYMPHOCYTES 28.5 % (15-50); MCH 33.3 pg (26.0-34.0); MCHC 33.5 g/dL (31.0-37.0); MEAN PLATELET VOLUME 10.9 fL (7.4-10.4); RBC 3.57 10x6/uL (4.00-5.40); RDW 12.6 % (11.5-14.5); WBC 8.4 10x3/uL (4.8-10.8)
[2017-07-22 05:20] LABS: MCV 99.4 fL (80.0-100.0); PLATELET COUNT 164 10x3/uL (130-400)
[2017-07-22 05:33] LABS: HEMOGLOBIN A1C 5.3 % (4.8-6.0)
[2017-07-22 05:44] LABS: ALBUMIN 3.1 g/dL (3.4-5.0); ALKALINE PHOSPHATASE 59 U/L (46-116); BILIRUBIN - TOTAL 0.67 mg/dL (0.2-1.3); CALC OSMOLALITY 282 mosm/kg (275-300); CALCIUM 7.7 mg/dL (8.5-10.1); CARBON DIOXIDE 26.6 mmol/L (21.0-32.0); CHLORIDE - SERUM 107 mmol/L (98-107); CHOL - HDL RATIO 4.7 ratio (2.3-4.1); CHOLESTEROL, TOTAL 180 mg/dL (0-200); CREATININE - SERUM 0.7 mg/dL (0.6-1.3); GLUCOSE 121 mg/dL (74-106); HDL CHOLESTEROL 38 mg/dL (32-96); LDL CHOLESTEROL 121 mg/dL (0-100); LDL-HDL RATIO 3.2 ratio (1.5-3.5); PROTEIN - SERUM 6.3 g/dL (6.4-8.2); SODIUM 142 mmol/L (136-145); TRIGLYCERIDE 108 mg/dL (30-200); UREA NITROGEN 9 mg/dL (7-18); eGFR NON AFRICAN AMERICAN 88 mL/min (90-120)
[2017-07-22 05:45] LABS: ALT (SGPT) 121 U/L (10-68); POTASSIUM - SERUM 3.5 mmol/L (3.5-5.1)
[2017-07-22 06:19] LABS: PLT FUNCT.(P2Y12) PLAVIX 154 PRU (194-418)
[2017-07-22 09:37] VITALS: BP 127/56
[2017-07-22 11:41] VITALS: BP 129/62
[2017-07-22 16:01] VITALS: BP 136/66
[2017-07-22 16:35] VITALS: Ht 152.4 cm; Wt 70.2 kg
[2017-07-22 21:44] VITALS: BP 131/59
[2017-07-23 01:15] VITALS: BP 112/60
[2017-07-23 05:35] LABS: BASOPHILS 0.2 % (0-2); EOSINOPHILS 0.6 % (0-7); HEMATOCRIT 31.7 % (36.0-48.0); HEMOGLOBIN 10.7 g/dL (12-16); IMMATURE GRANULOCYTES 0.2 % (0-5); LYMPHOCYTES 27.9 % (15-50); MCH 33.4 pg (26.0-34.0); MCHC 33.8 g/dL (31.0-37.0); MCV 99.1 fL (80.0-100.0); MEAN PLATELET VOLUME 10.6 fL (7.4-10.4); MONOCYTES 10.8 % (2-11); NEUTROPHILS 60.3 % (40-80); PLATELET COUNT 161 10x3/uL (130-400); RDW 12.4 % (11.5-14.5); WBC 8.7 10x3/uL (4.8-10.8)
[2017-07-23 05:43] LABS: CALC OSMOLALITY 279 mosm/kg (275-300); CHLORIDE - SERUM 105 mmol/L (98-107); GLUCOSE 118 mg/dL (74-106); POTASSIUM - SERUM 3.2 mmol/L (3.5-5.1); SODIUM 141 mmol/L (136-145); UREA NITROGEN 7 mg/dL (7-18)
[2017-07-23 05:46] LABS: CREATININE - SERUM 0.5 mg/dL (0.6-1.3); eGFR NON AFRICAN AMERICAN > 90 mL/min (90-120)
[2017-07-23 05:58] VITALS: BP 116/53
[2017-07-23 07:48] VITALS: BP 136/68
[2017-07-23 10:52] VITALS: BP 106/44
[2017-07-23] MEDS ORDERED: PLAVIX75 MG PO (12:07)
[2017-07-23] MEDS ORDERED: LOPRESSOR25 MG PO (12:07)
[2017-07-23] MEDS ORDERED: ASPIRIN81 MG PO (12:09)
[2017-07-23 13:17] LABS: HEPATITIS C ANTIBODY <0.1 (0.0-0.9)
== END 2017-07-23 14:49 | disposition home or self-care (01) | DRG 249 ==
LOC: D.ER 10:42 → OBSVTIME 16:53 → D.WS 16:53 → D.M2 16:53
PROVIDERS: Emergency Medicine; Internal Medicine Cardiovascular Disease; Internal Medicine Interventional Cardiology; Internal Medicine Nephrology
PROC: 4A023N7 Measurement of Cardiac Sampling and Pressure, Left Heart, Percutaneous Approach (ICD-10-PCS; 2017-07-21)
PROC: B2111ZZ Fluoroscopy of Multiple Coronary Arteries using Low Osmolar Contrast (ICD-10-PCS; 2017-07-21)
PROC: B2151ZZ Fluoroscopy of Left Heart using Low Osmolar Contrast (ICD-10-PCS; 2017-07-21)
PROC: 02703FZ Dilation of Coronary Artery, One Artery with Three Intraluminal Devices, Percutaneous Approach (ICD-10-PCS; principal; 2017-07-21 12:00)
DX: I21.4 Non-ST elevation (NSTEMI) myocardial infarction (principal); I25.110 Atherosclerotic heart disease of native coronary artery with unstable angina pectoris; F41.9 Anxiety disorder, unspecified; I10 Essential (primary) hypertension; E03.9 Hypothyroidism, unspecified; K21.9 Gastro-esophageal reflux disease without esophagitis; E78.5 Hyperlipidemia, unspecified; R74.8 Abnormal levels of other serum enzymes

== ENCOUNTER → 2017-08-03 11:01 | Outpatient (CLI) | payer MEDICARE ==
[2017-07-22 16:35] VITALS: BMI 28.1
[~2017-08-03 11:01] MED LIST changes: +ASPIRIN81 MG PO; +LOPRESSOR25 MG PO; +OMEPRAZOLE20 M1 PO; +PLAVIX75 MG PO
[2017-08-03 11:51] LABS: ALBUMIN 4.2 g/dL (3.4-5.0); BILIRUBIN - DIRECT 0.1 mg/dL (0.00-0.30); BILIRUBIN - INDIRECT 0.36 mg/dL (0.00-1.00); BILIRUBIN - TOTAL 0.46 mg/dL (0.2-1.3)
== END | disposition home or self-care (01) ==
LOC: D.LAB 11:01
PROVIDERS: Internal Medicine Gastroenterology
DX: R74.8 Abnormal levels of other serum enzymes (principal)

== ENCOUNTER → 2017-09-03 12:23 | Outpatient (CLI) | payer MEDICARE ==
[2017-07-22 16:35] VITALS: BMI 28.1
[~2017-09-03 12:23] MED LIST changes: +HEMOCYTE PLUS C1 CAP PO; +LOW DOSE ASPIRI81 M1 PO
[2017-09-03 13:15] LABS: ALBUMIN 3.9 g/dL (3.4-5.0); ALKALINE PHOSPHATASE 79 U/L (46-116); ALT (SGPT) 120 U/L (10-68); BILIRUBIN - TOTAL 0.51 mg/dL (0.2-1.3); CALC OSMOLALITY 272 mosm/kg (275-300); CALCIUM 9.1 mg/dL (8.5-10.1); CARBON DIOXIDE 24.2 mmol/L (21.0-32.0); CHLORIDE - SERUM 103 mmol/L (98-107); CREATININE - SERUM 0.8 mg/dL (0.6-1.3); GLUCOSE 103 mg/dL (74-106); POTASSIUM - SERUM 4.1 mmol/L (3.5-5.1); SODIUM 137 mmol/L (136-145); UREA NITROGEN 9 mg/dL (7-18); eGFR NON AFRICAN AMERICAN 75 mL/min (90-120)
== END | disposition home or self-care (01) ==
LOC: D.LAB 12:23
PROVIDERS: Internal Medicine Gastroenterology
DX: R74.8 Abnormal levels of other serum enzymes (principal)

== ENCOUNTER → 2017-10-19 12:32 | Outpatient (CLI) | payer MEDICARE ==
[2017-07-22 16:35] VITALS: BMI 28.1
--- NOTE | ~2017-10-19 | EC ---
PATIENT:DESIRAE MANCERA DATE OF SERVICE: 10/19/17 SEX: F MEDICAL RECORD: [id number] DATE OF : [birth year] LOCATION:D.[facility], LATER [facility] AGE OF PATIENT: 72 ADMISSION DATE: 10/19/17 REFERRING PHYSICIAN: INTERPRETING PHYSICIAN: JEOVANNY HOLLIS MD ECHOCARDIOGRAM REPORT ECHO CHARGES 4 ECHO COMPLETE Date: 10/19 CLINICAL DIAGNOSIS: CAROTID BRUIT / HTN ECHOCARDIOGRAPHIC MEASUREMENTS (adult normal given) AC root (d.<3.7cm) 3.5 cm LV Septum d (<1.2 cm> 1.5 cm Valve Excursion 1.8 cm LV Septum (systole) 1.9 cm Left Atria (s.<4.0cm> 3.9 cm LVPW d(<1.2cm) 1.4 cm RV (d.<2.3cm) 3.9 cm LVPW (sytole) 1.7 cm LV diastole(<5.6CM) 4.5 cm MV E-F(>70mm/sec) cm LV systole 3.0 cm LVOT Diameter 1.7 cm MV exc.(>10mm) 1.6 cm Est.ejection fraction (50-75%) % DOPPLER: LVIT cm/sec A 87.0 cm/sec E 98.0 cm/sec LA cm/sec RVSP 46 mmHg LVOT 79 cm/sec AOP1/2T m/s Asc. Ao 142 cm/sec RVOT 74 cm/sec RA cm/sec PA 109 cm/sec AV Gradient Peak 8.09 mmHg AV Mean 4.06 mmHg AV Area 2.4 cm MV Gradient Peak 4.02 mmHg MV Mean 1.37 mmHg MV Area cm COMMENTS: Lapidarist: Talia FRANK Manager Travel: 2 Dr. Fonseca TAPE# PACS Pericardial Effusion N DATE OF SERVICE: 10/19/2017 FINDINGS: 1. Left ventricular chamber size is within normal limits. Left ventricular systolic function is normal. Overall ejection fraction estimated 60%. 2. Left atrium is within normal limits at 3.9 cm. Right atrium and right ventricular chamber sizes are mildly dilated. 3. Valvular structures have normal structure and motion. 4. Doppler interrogation only reveals mild mitral regurgitation, mild tricuspid regurgitation. No other valvular insufficiency or stenosis. Pulmonary systolic ECHOCARDIOGRAM REPORT [id number] DESIRAE MANCERA pressure is estimated 46 mmHg. 5. No evidence of pericardial effusion or left ventricular thrombus. TRANSINT:[id number] Voice Confirmation ID: [id number] DOCUMENT ID: [id number] JEOVANNY HOLLIS MD at 1006 CC: [id number] DICTATION DATE: 10/20/17 0955 ATHLETIC MONITOR: 10/20/17 1239 DEP CLI 10/19/17 [place] [id number] [place] [id number]
== END | disposition home or self-care (01) ==
LOC: D.ECHO 12:32
DX: R09.89 Other specified symptoms and signs involving the circulatory and respiratory systems (principal); I10 Essential (primary) hypertension

== ENCOUNTER 2017-10-29 05:10 | Inpatient (IN) | payer MEDICARE ==
[2017-10-27 15:24] LABS: BASOPHILS 0.4 % (0-2); HEMATOCRIT 42.2 % (36.0-48.0); HEMOGLOBIN 14.7 g/dL (12-16); MCH 32.7 pg (26.0-34.0); MCHC 34.8 g/dL (31.0-37.0); MEAN PLATELET VOLUME 10.1 fL (7.4-10.4); MONOCYTES 8.5 % (2-11); NEUTROPHILS 52.1 % (40-80); RBC 4.49 10x6/uL (4.00-5.40); RDW 12.5 % (11.5-14.5); WBC 7.3 10x3/uL (4.8-10.8)
[2017-10-27 15:25] LABS: PLATELET COUNT 243 10x3/uL (130-400)
[2017-10-27 15:29] LABS: INR 1.04 (0.85-1.17); PROTIME 13.2 SECONDS (11.6-15.0)
[2017-10-27 15:30] LABS: APTT 41.9 SECONDS (22.8-39.4)
[2017-10-27 15:42] LABS: APPEARANCE CLEAR (CLEAR); BILIRUBIN NEGATIVE (NEGATIVE); COLOR DK YELLOW (YELLOW); GLUCOSE NEGATIVE (NEGATIVE); KETONE NEGATIVE (NEGATIVE); NITRITE NEGATIVE (NEGATIVE); PROTEIN NEGATIVE (NEGATIVE); SPECIFIC GRAVITY 1.015 (1.005-1.020); UROBILINOGEN NORMAL (NORMAL)
[2017-10-27 15:44] LABS: ALBUMIN 3.9 g/dL (3.4-5.0); ALKALINE PHOSPHATASE 77 U/L (46-116); ALT (SGPT) 110 U/L (10-68); BACTERIA FEW /hpf (NONE SEEN); BILIRUBIN - TOTAL 0.54 mg/dL (0.2-1.3); CALC OSMOLALITY 265 mosm/kg (275-300); CALCIUM 9.1 mg/dL (8.5-10.1); CARBON DIOXIDE 23.9 mmol/L (21.0-32.0); CHLORIDE - SERUM 102 mmol/L (98-107); CHOLESTEROL, TOTAL 269 mg/dL (0-200); CREATININE - SERUM 0.6 mg/dL (0.6-1.3); EPITHELIAL CELLS 0-5 /hpf (0-5); GLUCOSE 100 mg/dL (74-106); PHOSPHOROUS 3.4 mg/dL (2.5-4.9); POTASSIUM - SERUM 4.4 mmol/L (3.5-5.1); PROTEIN - SERUM 7.9 g/dL (6.4-8.2); RED CELLS - URINE OCC /hpf (0-5); SODIUM 134 mmol/L (136-145); THYROID STIMULATING HORMONE 1.21 uIU/mL (0.36-3.74); UREA NITROGEN 7 mg/dL (7-18); WHITE CELLS - URINE 0-5 /hpf (0-5); eGFR NON AFRICAN AMERICAN > 90 mL/min (90-120)
[2017-10-29] VITALS (44 sets, daily range): BP systolic 102–159; BP diastolic 46–73; Ht 162.6 cm; Wt 66.8 kg
[~2017-10-29] VITALS: Ht 162.6 cm; Wt 66.8 kg
--- NOTE | ~2017-10-29 | TEE ---
PATIENT:DESIRAE MANCERA MEDICAL RECORD: [id number] LOCATION:[place] [address] AGE OF PATIENT: 72 ADMISSION DATE: 10/29/17 SEX: F REFERRING PHYSICIAN: INTERPRETING PHYSICIAN: JEOVANNY HOLLIS MD TRANSESOPHAGEAL ECHOCARDIOGRAM Date: 10/29/17 FANI CHARGE Y INDICATIONS: CABG PREMEDICATIONS: PATIENT'S RESPONSE PROCEDURE DOPPLER MEASUREMENTS: LVIT LA PA RA LVOT RVOT Asc. Ao AV Gradient Peak AV Mean AV Area MV Gradient Peak MV Mean MV Area INTERPRETATION: Doppler: 2-D: COLOR FLOW DOPPLER NORMAL SALINE STUDY: MISCELLANOUS: DIAGNOSIS: PLAN: Hot Tamale Man:3 Dr. Alston Division Chief: Talia FRANK COMMENTS: DATE OF SERVICE: 10/29/2017 Transesophageal echo evaluation of valvular structures during bypass surgery. FINDINGS: 1. Left ventricular chamber size is within normal limits. Left ventricular systolic function is normal. Overall ejection fraction estimated at 55%. 2. Left atrium, right atrium, and right ventricle chamber sizes are within normal limits. TRANSESOPHAGEAL ECHOCARDIOGRAM REPORT [id number] DESIRAE MANCERA 3. Valvular structures have normal structure and motion. 4. Doppler interrogation reveals only trace mitral regurgitation, no other valvular insufficiency or stenosis. 5. No evidence of pericardial effusion or left ventricular thrombus. TRANSINT:[id number] Voice Confirmation ID: [id number] DOCUMENT ID: [id number] at 1849 CC: [id number] DICTATION DATE: 10/29/17 1309 BOOK SORTER: 10/30/17 1045 ADM IN [place] [address] [place] [address]
--- NOTE | ~2017-10-29 | HP ---
PATIENT: DESIRAE MANCERA MEDICAL RECORD: [id number] ACCOUNT: [id number] LOCATION:[facility] : [birth year] ADMISSION DATE: 10/29/17 HISTORY AND PHYSICAL EXAMINATION DESIRAE Gavin (72yo, F) ID# [id number]. Date/Time10/21/2017 11:63EUDVA19 1945Service Dept.NPP[facility] ClinicProviderEDPALOMA RAM MDInsuranceMed Primary: [employer] (MEDICARE REPLACEMENT/ADVANTAGE - HMO) Insurance # : [id number] PCP : CORA LI Referring Provider Name : CORA LI Employer Name : RETIRED Prescription: DSTPSDIR - Member is eligible. Chief Complaint Coronary artery disease FOLLOWING CAD 1 MONTH F/U W ECHO AND CAROTID DOPPLER Patient's Care Team Primary Care Provider (): CORA LI: [address] [id number], , Referring Provider (): CORA LI: [address] [place] [address], , Judicial Registrar: [place] SLAUGHTER: [address] [place] [address], , Patient's Pharmacies [facility] [address] (ERX): [phone] , [facility] [address], , [facility] MAIL DELIVERY (MAIL-ORDER, ERX): [phone] [facility] [address], , Vitals BP:138/87 sitting R arm 10/21/2017 12:16 pm 140/84 sitting L arm 10/21/2017 12:17 pmHR:60/REG 10/21/2017 12:18 pmHt:5 ft 4 in 10/21/2017 11:59 amWt:142 lbs 10/21/2017 12:18 pmBMI:24.4 10/21/2017 12:18 pmAllergies Reviewed Allergies NKDAMedications Reviewed Medications Aspir-81 81 mg tablet,delayed release Take 1 tablet(s) every day by oral route.08/17/17 [facility] Wilsonbisoprolol 5 mg-hydrochlorothiazide 6.25 mg gulyxp18/21/17 filledAdcrowd retargeting Systemscitalopram 20 mg /11/18 filledAdcrowd retargeting Systemsclopidogrel 75 mg tablet Take 1 tablet(s) every day by oral route.08/18/17 filledNew Body MDHYDROcodone 5 mg-acetaminophen 325 mg tablet Take 1 tablet(s) every 4 hours by oral route as needed.08/17/17 [facility] Wilsonlovastatin 20 mg myypjo89/08/17 filledNew Body MDmetoprolol tartrate 25 mg tablet Take 1 tablet(s) twice a day by oral route.08/18/17 filledAdcrowd retargeting Systemsneomycin 3.5 mg/g-polymyxin B 10,000 unit/g-dexameth 0.1 % eye oint02/19/17 filledNew Body MDomeprazole 20 mg capsule,delayed zttqtuq00/11/18 CloakroomProblems Reviewed Problems Essential hypertension - Onset: 12/29/2016 Coronary arteriosclerosis - Onset: 08/17/2017 HISTORY AND PHYSICAL [id number] DESIRAE MANCERA Gastroesophageal reflux disease - Onset: 12/29/2016 Cholelithiasis without obstruction - Onset: 12/01/2016 Family History Reviewed Family History Father- Heart diseaseSocial History Reviewed Social History Meaningful Use - Optional Smoking Status: Unknown if ever smoked Deaf or serious difficulty hearing: N Blind or serious difficulty seeing: N Difficulty concentrating, remembering or making decisions: N Difficulty walking or climbing stairs: N Difficulty dressing or bathing: N Difficulty doing errands alone: N Surgical History Reviewed Surgical History Cholecystectomy, laparoscopic Cholecystectomy, 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 HPI Dyspnea Reported by patient. Quality: dyspnea Severity: mild Duration: for 5 months; "SINCE HEART ATTACK Jun" Onset/Timing: weekly Context: with activity; walking up inclines; walking up strairs Alleviating Factors: rest Aggravating Factors: activity Associated Symptoms: no weight gain; chest pain/discomfort Gallegos artery disease ROS Patient reports exercise intolerance but reports no fever, no night sweats, no significant weight gain, and no significant weight loss. She reports no chest pain, no arm pain on exertion, no shortness of breath when walking, no shortness of breath when lying down, no palpitations, and no known heart murmur; occasional angina with exercise. She reports no dry eyes, no irritation, and no vision change. She reports no difficulty hearing and no ea r pain. She reports no frequent nosebleeds and no nose/sinus problems. She reports no sore throat, no bleeding gums, no snoring, no dry mouth, no mouth ulcers, no oral abnormalities, and no teeth problems. She reports no jugular vein distension and no swo l donna glands. She reports no cough, no wheezing, no shortness of breath, and no coughing up blood. She reports no abdominal pain, no vomiting, normal appetite, no diarrhea, not vomiting blood, no nausea, and no constipation. She reports no incontinence, no d ifficulty urinating, no hematuria, and no increased frequency. She reports no muscle aches, no muscle HISTORY AND PHYSICAL [id number] FIORDALIZADESIRAE M weakness, no arthralgias/joint pain, no back pain, and no swelling in the extremities. She reports no abnormal mole, no jaundice, and no rashes. She repo r ts no loss of consciousness, no weakness, no numbness, no seizures, no dizziness, and no headaches. She reports no depression, no sleep disturbances, feeling safe in relationship, and no alcohol abuse. She reports no fatigue. She reports no swollen glands and no bruising. She reports no runny nose, no sinus pressure, no itching, no hives, and no frequent sneezing. ROS as noted in the HPI Physical Exam Patient is a 72-year-old female. Constitutional: General Appearance well nourished and developed and healthy-appearing. Level of Distress NAD. Ambulation ambulating normally. Cardiovascular: Apical Impulse not displaced or no thrill. Heart Auscultation normal s1 and s2; no murmurs, rubs, or gallops; and RRR. Arterial Pulses no abdominal aorta bruits, femoral bruits, or popliteal bruits and 2+ bilateral, carotid 2+ bilateral, femoral 2+ bilateral, popliteal 2+ bilateral, and dorsalis pedis 2+ bilateral. Edema no edema or varicosities. Lungs: Repiratory Effort no dyspnea. Percussion no hyperresonance or dullne ss or flatness. Auscultation no wheezing, rhonchi, or rales / crackles and breathing sounds normal, good air movement, and CTA except as noted. Abdomen: Bowl Sounds normal. Inspection and Palpation no tenderness, guarding, masses, or rebound tenderness an d soft and non-distended. Liver non-tender and no hepatomegaly. Spleen non-tender and no splenomegaly. Hernia none palpable. Musculoskeletal System: Gait And Stance normal gait and stance. Digits and Nails normal nails and no cyanosis. Neurologic: Cranial Nerves grossly intact. Reflexes DTRs 2+ bilaterally throughout. Sensation grossly intact. Lymph Nodes: Lymph Nodes no cervical LAD, supraclavicular LAD, axillary LAD, or inguinal LAD. Eyes: Lids and Conjunctivae no discharge or pallor and non-injected. Pupils PERRLA. Cornea grossly intact. EOM EOMI. Lens clear. Sclera non-icteric. Neck: Neck no masses, enlarged lymph nodes, or carotid bruits and supple and trachea midline. Thyroid no enlargement or nodules and non-tender. Skin: Inspection and Palpation no rash, lesions, ulcers, jaundice, or abnormal nevi. Assessment / Plan coronary artery disease stable 1. Coronary arteriosclerosis I25.10: Atherosclerotic heart disease of [place] coronary artery without angina pectoris Discussion Notes now off Plavix I have discussed her disease process with her in detail as well as the alternative methods of treatment. We discussed coronary artery bypass including the expected HISTORY AND PHYSICAL [id number] DESIRAE MANCERA benefits and risks which include bleeding, infection, stroke , , and the imponderables. She understands all of the above and wishes to proceed with coronary artery bypass. Scheduled for surgery FREDDY RAM MD at 1318 CC: [id number] DICTATION DATE: 10/21/17 1120 FLATWORK FEEDER: KATIE 10/22/[address] [facility] [address] [place] [address]
--- NOTE | ~2017-10-29 | OP ---
PATIENT NAME: DESIRAE MANCERA MEDICAL RECORD: [id number] :47 [facility] ADMISSION DATE:10/29/17 SURGEON: URBAN RAM MD DATE OF OPERATION: 10/29/2017 SURGEON: Urban Ram MD ROW BOSS: Elder Collier MD ANESTHESIA: General endotracheal, Dr. Burleson. OPERATION PERFORMED: Coronary artery bypass; 1. Reverse saphenous vein graft to the distal right coronary artery. 2. Reverse saphenous vein graft to the obtuse marginal coronary artery. 3. Left internal thoracic to left anterior descending. 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 POSTOPERATIVE DIAGNOSIS: Severe occlusive coronary artery disease with angina pectoris. INDICATION FOR OPERATION: Compelling anatomy unsuitable for angioplasty. ESTIMATED BLOOD LOSS: Cell Saver was used. DESCRIPTION OF PROCEDURE: After informed consent, adequate preoperative medication evaluation, the patient was brought to the operating room, placed on the table in the supine position. After induction of general endotracheal anesthesia and application of appropriate monitoring devices, the chest, neck, abdomen, and both legs were prepped and draped in sterile field, utilizing Betadine scrub, alcohol, and Betadine solution. A Betadine-impregnated drape was also used. Saphenous vein was harvested from the right leg and prepared for reverse saphenous vein grafting. Leg was closed over drains utilizing 3-0 Vicryl and skin clari. A simultaneous median sternotomy incision was used and dissection carried down the fascia. Hemostasis maintained with electrocautery. Sternum was divided. Innominate vein was identified and protected. Left internal thoracic was taken down and prepared for grafting. The patient was given a calculated dose of heparin. Pericardium was opened and cannulated in standard fashion utilizing one aortic, one two-stage cannula in the atrium and inferior vena cava. The patient was placed on cardiopulmonary bypass, cooled to 28 degrees centigrade. A cross clamp was placed just proximal to the aortic cannula and the patient was given cardioplegic solution through the aortic root. The patient was given a warm induction and cold maintenance. The patient was given cold intermittent cardioplegic solution throughout the procedure through the grafts, through the root or a combination of both. The first vessel to be grafted was the distal right coronary artery, was grafted end-to-side utilizing a running 7-0 Prolene suture. Graft was measured back to the aorta and a proximal anastomosis fashioned utilizing running 6-0 Prolene suture. Next, the obtuse marginal was grafted end-to-side utilizing a running 7-0 Prolene suture. Graft was measured back to the aorta and a proximal anastomosis fashioned utilizing running 6-0 Prolene suture. Next, left internal thoracic was brought through the hole in pericardium, sutured left anterior descending end-to-side utilizing a running 8-0 Prolene suture. Pedicle was attached to epicardium with 6-0 Prolene suture. All maneuvers to remove trapped air were performed. The OPERATIVE REPORT [id number] DESIRAE MANCERA patient was given warm cardioplegic repeat fusion and controlled reperfusion. The patient rewarmed to 37 degrees centigrade. Two atrial and 2 ventricular pacing wires were placed in the heart and brought through the epigastric area. The patient was weaned cardiopulmonary bypass. After being stable off bypass, he was given calculated dose of protamine to reverse the heparin. Hemostasis was assured. A #40 right angle and #36 chest tubes were brought in through the epigastric area and placed in mediastinum. A separate left pleural tube was connected down to water seal and suction. Chest was again irrigated. Instrument count and sponge count were correct times 2. Chest closed in layers utilizing #7 wire, sternum, #2 Vicryl on linea alba and pectoralis fascia. Subcutaneous tissue was approximated with 3-0 Vicryl and skin approximated with 3-0 subcuticular Vicryl. Sterile dressings were applied. The patient tolerated the procedure well and was transferred to the CV-ICU in stable condition. TRANSINT:[id number] Voice Confirmation ID: [id number] DOCUMENT ID: [id number] URBAN RAM MD at 1303 CC: [id number] DICTATION DATE: 10/29/17 1331 HOME CARE SPECIALIST: 10/29/17 1704 ADM IN [place] [id number] [place] [address]
[~2017-10-29 05:10] MED LIST changes: -HEMOCYTE PLUS C1 CAP PO
[2017-10-29] MEDS ORDERED: PLAVIX75 MG PO (05:25)
[2017-10-29 07:25] LABS: PLT FUNCT.(P2Y12) PLAVIX 276 PRU (194-418)
[2017-10-29 12:52] LABS: HEMATOCRIT 29.9 % (36.0-48.0); HEMOGLOBIN 10.3 g/dL (12-16); MCH 32.1 pg (26.0-34.0); MCHC 34.4 g/dL (31.0-37.0); MCV 93.1 fL (80.0-100.0); MEAN PLATELET VOLUME 9.9 fL (7.4-10.4); RBC 3.21 10x6/uL (4.00-5.40); RDW 12.5 % (11.5-14.5)
[2017-10-29 13:03] LABS: CALC OSMOLALITY 297 mosm/kg (275-300); CALCIUM 7.4 mg/dL (8.5-10.1); CARBON DIOXIDE 23.7 mmol/L (21.0-32.0); CHLORIDE - SERUM 110 mmol/L (98-107); CREATININE - SERUM 0.6 mg/dL (0.6-1.3); POTASSIUM - SERUM 4.1 mmol/L (3.5-5.1); SODIUM 148 mmol/L (136-145); UREA NITROGEN 8 mg/dL (7-18); eGFR NON AFRICAN AMERICAN > 90 mL/min (90-120)
[2017-10-29 13:05] LABS: APTT 40.3 SECONDS (22.8-39.4)
[2017-10-29 13:06] LABS: INR 1.53 (0.85-1.17); PROTIME 17.9 SECONDS (11.6-15.0)
[2017-10-29 13:08] LABS: GLUCOSE 209 mg/dL (74-106)
[2017-10-30] VITALS (74 sets, daily range): BP systolic 78–141; BP diastolic 41–60
[2017-10-30 06:02] LABS: MCH 32.6 pg (26.0-34.0); MCHC 34.4 g/dL (31.0-37.0); MCV 94.8 fL (80.0-100.0); MEAN PLATELET VOLUME 9.6 fL (7.4-10.4); RDW 13.3 % (11.5-14.5)
[2017-10-30 06:22] LABS: HEMATOCRIT 22.1 % (36.0-48.0); HEMOGLOBIN 7.6 g/dL (12-16); RBC 2.33 10x6/uL (4.00-5.40); WBC 11.5 10x3/uL (4.8-10.8)
[2017-10-30 06:33] LABS: ALBUMIN 3.7 g/dL (3.4-5.0); ALKALINE PHOSPHATASE 16 U/L (46-116); ALT (SGPT) 62 U/L (10-68); BILIRUBIN - TOTAL 0.73 mg/dL (0.2-1.3); CALC OSMOLALITY 286 mosm/kg (275-300); CARBON DIOXIDE 28.7 mmol/L (21.0-32.0); CHLORIDE - SERUM 108 mmol/L (98-107); CREATININE - SERUM 0.6 mg/dL (0.6-1.3); GLUCOSE 117 mg/dL (74-106); POTASSIUM - SERUM 4.2 mmol/L (3.5-5.1); PROTEIN - SERUM 5.6 g/dL (6.4-8.2); SODIUM 144 mmol/L (136-145); UREA NITROGEN 9 mg/dL (7-18); eGFR NON AFRICAN AMERICAN > 90 mL/min (90-120)
[2017-10-31] VITALS (54 sets, daily range): BP systolic 103–145; BP diastolic 44–87
[2017-10-31 05:29] LABS: MCH 30.8 pg (26.0-34.0); MCHC 33.1 g/dL (31.0-37.0); MCV 92.9 fL (80.0-100.0); MEAN PLATELET VOLUME 10.4 fL (7.4-10.4); RDW 15.2 % (11.5-14.5); WBC 12.8 10x3/uL (4.8-10.8)
[2017-10-31 05:30] LABS: HEMATOCRIT 32.6 % (36.0-48.0); HEMOGLOBIN 10.8 g/dL (12-16); RBC 3.51 10x6/uL (4.00-5.40)
[2017-10-31 06:01] LABS: ALBUMIN 3.4 g/dL (3.4-5.0); ALKALINE PHOSPHATASE 34 U/L (46-116); ALT (SGPT) 54 U/L (10-68); CALC OSMOLALITY 279 mosm/kg (275-300); CALCIUM 8.3 mg/dL (8.5-10.1); CARBON DIOXIDE 29.2 mmol/L (21.0-32.0); CHLORIDE - SERUM 104 mmol/L (98-107); CREATININE - SERUM 0.7 mg/dL (0.6-1.3); GLUCOSE 155 mg/dL (74-106); POTASSIUM - SERUM 4.5 mmol/L (3.5-5.1); SODIUM 139 mmol/L (136-145); UREA NITROGEN 11 mg/dL (7-18); eGFR NON AFRICAN AMERICAN 87 mL/min (90-120)
[2017-11-01] VITALS (25 sets, daily range): BP systolic 117–147; BP diastolic 48–68
[2017-11-01 06:17] LABS: HEMATOCRIT 30.2 % (36.0-48.0); HEMOGLOBIN 10.1 g/dL (12-16); MCH 31.2 pg (26.0-34.0); MCHC 33.4 g/dL (31.0-37.0); MCV 93.2 fL (80.0-100.0); MEAN PLATELET VOLUME 10.8 fL (7.4-10.4); PLATELET COUNT 93 10x3/uL (130-400); RBC 3.24 10x6/uL (4.00-5.40); RDW 14.5 % (11.5-14.5); WBC 11.4 10x3/uL (4.8-10.8)
[2017-11-01 06:42] LABS: ALBUMIN 3.2 g/dL (3.4-5.0); ALKALINE PHOSPHATASE 41 U/L (46-116); ALT (SGPT) 44 U/L (10-68); CALC OSMOLALITY 276 mosm/kg (275-300); CALCIUM 8.5 mg/dL (8.5-10.1); CARBON DIOXIDE 29.1 mmol/L (21.0-32.0); CHLORIDE - SERUM 101 mmol/L (98-107); CREATININE - SERUM 0.6 mg/dL (0.6-1.3); GLUCOSE 137 mg/dL (74-106); POTASSIUM - SERUM 3.9 mmol/L (3.5-5.1); PROTEIN - SERUM 6.3 g/dL (6.4-8.2); SODIUM 138 mmol/L (136-145); UREA NITROGEN 11 mg/dL (7-18); eGFR NON AFRICAN AMERICAN > 90 mL/min (90-120)
[2017-11-01 06:52] LABS: PLATELET ESTIMATE DECREASED
[2017-11-02] VITALS (25 sets, daily range): BP systolic 122–153; BP diastolic 53–81
[2017-11-02 05:56] LABS: HEMATOCRIT 29.6 % (36.0-48.0); HEMOGLOBIN 9.9 g/dL (12-16); MCH 30.9 pg (26.0-34.0); MCHC 33.4 g/dL (31.0-37.0); MCV 92.5 fL (80.0-100.0); MEAN PLATELET VOLUME 9.9 fL (7.4-10.4); RBC 3.2 10x6/uL (4.00-5.40); RDW 14.1 % (11.5-14.5); WBC 10.8 10x3/uL (4.8-10.8)
[2017-11-02 06:20] LABS: ALKALINE PHOSPHATASE 49 U/L (46-116); ALT (SGPT) 38 U/L (10-68); CALCIUM 8.6 mg/dL (8.5-10.1); CARBON DIOXIDE 29.9 mmol/L (21.0-32.0); CHLORIDE - SERUM 103 mmol/L (98-107); CREATININE - SERUM 0.5 mg/dL (0.6-1.3); GLUCOSE 109 mg/dL (74-106); PROTEIN - SERUM 6.3 g/dL (6.4-8.2); SODIUM 138 mmol/L (136-145); eGFR NON AFRICAN AMERICAN > 90 mL/min (90-120)
[2017-11-02 06:27] LABS: CALC OSMOLALITY 274 mosm/kg (275-300); POTASSIUM - SERUM 3.3 mmol/L (3.5-5.1); UREA NITROGEN 8 mg/dL (7-18)
[2017-11-03] VITALS (10 sets, daily range): BP systolic 104–156; BP diastolic 59–77
[2017-11-03 05:38] LABS: HEMATOCRIT 30.6 % (36.0-48.0); HEMOGLOBIN 10.4 g/dL (12-16); MCH 31.3 pg (26.0-34.0); MCV 92.2 fL (80.0-100.0); MEAN PLATELET VOLUME 9.7 fL (7.4-10.4); RBC 3.32 10x6/uL (4.00-5.40); RDW 14.2 % (11.5-14.5); WBC 9.4 10x3/uL (4.8-10.8)
[2017-11-03 05:51] LABS: ALBUMIN 2.9 g/dL (3.4-5.0); ALKALINE PHOSPHATASE 54 U/L (46-116); ALT (SGPT) 40 U/L (10-68); BILIRUBIN - TOTAL 0.96 mg/dL (0.2-1.3); CALC OSMOLALITY 278 mosm/kg (275-300); CALCIUM 8.4 mg/dL (8.5-10.1); CARBON DIOXIDE 29.3 mmol/L (21.0-32.0); CHLORIDE - SERUM 101 mmol/L (98-107); CREATININE - SERUM 0.4 mg/dL (0.6-1.3); GLUCOSE 102 mg/dL (74-106); POTASSIUM - SERUM 3.2 mmol/L (3.5-5.1); PROTEIN - SERUM 6.3 g/dL (6.4-8.2); SODIUM 141 mmol/L (136-145); UREA NITROGEN 8 mg/dL (7-18); eGFR NON AFRICAN AMERICAN > 90 mL/min (90-120)
[2017-11-03] MEDS ORDERED: HEMOCYTE PLUS C1 CAP PO (09:11)
== END 2017-11-03 10:53 | disposition home or self-care (01) | DRG 235 ==
LOC: D.CVICU 05:10 → D.SDCHOLD 05:10 → D.CVICU 08:52
PROVIDERS: Internal Medicine Cardiovascular Disease
PROC: 021109W Bypass Coronary Artery, Two Arteries from Aorta with Autologous Venous Tissue, Open Approach (ICD-10-PCS; 2017-10-29)
PROC: 06BP0ZZ Excision of Right Saphenous Vein, Open Approach (ICD-10-PCS; 2017-10-29)
PROC: 5A1221Z Performance of Cardiac Output, Continuous (ICD-10-PCS; 2017-10-29)
PROC: B24BZZ4 Ultrasonography of Heart with Aorta, Transesophageal (ICD-10-PCS; 2017-10-29)
PROC: 02100ZC Bypass Coronary Artery, One Artery from Thoracic Artery, Open Approach (ICD-10-PCS; principal; 2017-10-29 07:30)
DX: I25.119 Atherosclerotic heart disease of native coronary artery with unspecified angina pectoris (principal); J96.00 Acute respiratory failure, unspecified whether with hypoxia or hypercapnia; D62 Acute posthemorrhagic anemia; I10 Essential (primary) hypertension; E03.9 Hypothyroidism, unspecified; D69.6 Thrombocytopenia, unspecified; K21.9 Gastro-esophageal reflux disease without esophagitis; F41.8 Other specified anxiety disorders; E78.5 Hyperlipidemia, unspecified; E11.9 Type 2 diabetes mellitus without complications

== ENCOUNTER → 2017-11-25 08:59 | Outpatient (CLI) | payer MEDICARE ==
[2017-10-29 18:47] VITALS: BMI 24.4
[~2017-11-25 08:59] MED LIST changes: +HEMOCYTE PLUS C1 CAP PO
[2017-11-25 09:27] LABS: HEMOGLOBIN 13.5 g/dL (12-16); MCH 32.6 pg (26.0-34.0); MCHC 33.8 g/dL (31.0-37.0); MCV 96.6 fL (80.0-100.0); RBC 4.14 10x6/uL (4.00-5.40); WBC 6.4 10x3/uL (4.8-10.8)
[2017-11-25 09:39] LABS: ALBUMIN 3.8 g/dL (3.4-5.0); ALKALINE PHOSPHATASE 128 U/L (46-116); ALT (SGPT) 71 U/L (10-68); BILIRUBIN - TOTAL 0.33 mg/dL (0.2-1.3); CALC OSMOLALITY 275 mosm/kg (275-300); CALCIUM 9.3 mg/dL (8.5-10.1); CARBON DIOXIDE 27.5 mmol/L (21.0-32.0); CHLORIDE - SERUM 102 mmol/L (98-107); CREATININE - SERUM 0.7 mg/dL (0.6-1.3); GLUCOSE 107 mg/dL (74-106); POTASSIUM - SERUM 4.1 mmol/L (3.5-5.1); PROTEIN - SERUM 8.2 g/dL (6.4-8.2); SODIUM 139 mmol/L (136-145); UREA NITROGEN 6 mg/dL (7-18); eGFR NON AFRICAN AMERICAN 87 mL/min (90-120)
== END | disposition home or self-care (01) ==
LOC: D.LAB 08:30 → D.RAD 09:00
PROVIDERS: Internal Medicine Cardiovascular Disease
DX: J90 Pleural effusion, not elsewhere classified (principal); D64.9 Anemia, unspecified; I25.10 Atherosclerotic heart disease of native coronary artery without angina pectoris

== ENCOUNTER → 2018-04-01 13:20 | Outpatient (CLI) | payer MEDICARE ==
[2017-10-29 18:47] VITALS: BMI 24.4
[2018-04-01 14:03] LABS: ALBUMIN 3.9 g/dL (3.4-5.0); BILIRUBIN - DIRECT 0.09 mg/dL (0.00-0.30); BILIRUBIN - INDIRECT 0.4 mg/dL (0.00-1.00); BILIRUBIN - TOTAL 0.49 mg/dL (0.2-1.3)
== END | disposition home or self-care (01) ==
LOC: D.LAB 13:20
PROVIDERS: Internal Medicine Gastroenterology
DX: R79.89 Other specified abnormal findings of blood chemistry (principal); K75.81 Nonalcoholic steatohepatitis (NASH)

== ENCOUNTER 2018-07-04 08:00 | Outpatient (CLI) | payer MEDICARE ==
[2017-10-29 18:47] VITALS: BMI 24.4
== END 2018-07-04 09:00 | disposition home or self-care (01) ==
LOC: D.MAMMO 08:00
DX: Z12.31 Encounter for screening mammogram for malignant neoplasm of breast (principal)

== ENCOUNTER → 2019-06-07 08:58 | Outpatient (CLI) | payer MEDICARE ==
[2017-10-29 18:47] VITALS: BMI 24.4
--- NOTE | 2019-06-15 11:25 | EC ---
PATIENT:DESIRAE MANCERA DATE OF SERVICE: 06/07/19 SEX: F MEDICAL RECORD: [id number] DATE OF : 47 LOCATION:[facility] AGE OF PATIENT: 73 ADMISSION DATE: 06/07/19 REFERRING PHYSICIAN: INTERPRETING PHYSICIAN: NADER JIMÉNEZ MD ECHOCARDIOGRAM REPORT ECHO CHARGES 4 ECHO COMPLETE Date: 06/07/19 CLINICAL DIAGNOSIS: CAD/ASSESS EF HX OF HTN/CARDIOMYOPATHY ECHOCARDIOGRAPHIC MEASUREMENTS (adult normal given) AC root (d.<3.7cm) 2.8 cm LV Septum d (<1.2 cm> 0.90 cm Valve Excursion 1.4 cm LV Septum (systole) 1.4 cm Left Atria (s.<4.0cm> 3.4 cm LVPW d(<1.2cm) 1.2 cm RV (d.<2.3cm) 4.3 cm LVPW (sytole) 1.5 cm LV diastole(<5.6CM) 3.9 cm MV E-F(>70mm/sec) cm LV systole 2.5 cm LVOT Diameter 1.7 cm MV exc.(>10mm) 1.3 cm Est.ejection fraction (50-75%) % DOPPLER: LVIT cm/sec A 81.0 cm/sec E 100.0 cm/sec LA cm/sec RVSP 19 mmHg LVOT 99 cm/sec AOP1/2T m/s Asc. Ao 117 cm/sec RVOT 74 cm/sec RA cm/sec PA 94 cm/sec AV Gradient Peak 5.52 mmHg AV Mean 3.33 mmHg AV Area 1.7 cm MV Gradient Peak 4.09 mmHg MV Mean 1.61 mmHg MV Area cm COMMENTS: White Metal Caster: 2 KIESHA FRANK Electrical Repairer: 3 Dr. Alston TAPE# PACS Pericardial Effusion N DATE OF SERVICE: Adequate 2D, color flow imaging, spectral Doppler, and M-Mode No LVH. LV internal dimension is normal. Wall motion is normal. EF is greater than or equal to 55%. Aortic valve is tricuspid. No evidence of stenosis by Doppler interrogation. Left atrium is normal at 3.4 cm. Mitral valve shows no prolapse. Trace MR. Right-sided chambers are grossly normal. Mild TR. TRANSINT:[id number] Voice Confirmation ID: [id number] DOCUMENT ID: [id number] ECHOCARDIOGRAM REPORT [id number] DESIRAE MANCERA GREGORY A MD at 1125 CC: [id number] DICTATION DATE: 06/08/19 1239 [facility] HISTORY PROFESSOR: 06/08/19 1509 DEP CLI 06/07/19 [place] [id number] [place] [id number]
== END | disposition home or self-care (01) ==
LOC: D.HCCECHO 08:58
PROVIDERS: ATTEND Internal Medicine Interventional Cardiology
DX: I25.10 Atherosclerotic heart disease of native coronary artery without angina pectoris (principal)

== ENCOUNTER 2020-03-09 18:50 | Observation (INO) | payer MEDICARE ==
[2020-03-09 18:58] VITALS: Ht 162.6 cm
[2020-03-09 19:26] LABS: BASOPHILS 0.4 % (0-2); EOSINOPHILS 0.1 % (0-7); HEMATOCRIT 42.4 % (36.0-48.0); HEMOGLOBIN 14.4 g/dL (12-16); IMMATURE GRANULOCYTES 0.1 % (0-5); LYMPHOCYTES 24.2 % (15-50); MCH 31.9 pg (26.0-34.0); MONOCYTES 6.9 % (2-11); NEUTROPHILS 68.3 % (40-80); PLATELET COUNT 226 10x3/uL (130-400); RBC 4.51 10x6/uL (4.00-5.40); RDW 12.8 % (11.5-14.5); WBC 8.4 10x3/uL (4.8-10.8)
[2020-03-09 19:32] VITALS: BP 131/52
[2020-03-09 19:34] LABS: APTT 35.8 SECONDS (22.8-39.4); INR 1.03 (0.85-1.17); PROTIME 13.4 SECONDS (11.6-15.0)
[2020-03-09 20:05] LABS: CALC OSMOLALITY 269 mosm/kg (275-300); CALCIUM 9.4 mg/dL (8.5-10.1); CARBON DIOXIDE 23.7 mmol/L (21.0-32.0); CHLORIDE - SERUM 100 mmol/L (98-107); CREATININE - SERUM 0.7 mg/dL (0.6-1.3); GLUCOSE 139 mg/dL (74-106); POTASSIUM - SERUM 4.2 mmol/L (3.5-5.1); SODIUM 135 mmol/L (136-145); UREA NITROGEN 7 mg/dL (7-18); eGFR NON AFRICAN AMERICAN 87 mL/min (90-120)
[2020-03-09 20:18] LABS: ALBUMIN 4.1 g/dL (3.4-5.0); ALKALINE PHOSPHATASE 94 U/L (30-120); ALT (SGPT) 110 U/L (10-68); BILIRUBIN - TOTAL 0.69 mg/dL (0.2-1.3); CKMB 0.9 U/L (0.0-3.6); CREATINE KINASE 102 UL (21-215); LIPASE 106 U/L (73-393); MAGNESIUM - SERUM 1.8 mg/dL (1.8-2.4); TROPONIN-I 0.016 ng/mL (0.000-0.060)
[2020-03-09 22:21] LABS: CKMB 1.1 U/L (0.0-3.6); TROPONIN-I < 0.017 ng/mL (0.000-0.060)
[2020-03-09 23:39] VITALS: BP 170/90
[2020-03-10 01:01] VITALS: BP 147/61
[2020-03-10 03:12] VITALS: BP 156/59
[2020-03-10 04:39] VITALS: BP 148/62
[2020-03-10 06:47] VITALS: BP 155/58
[2020-03-10 07:28] LABS: BASOPHILS 0.2 % (0-2); EOSINOPHILS 0.8 % (0-7); HEMATOCRIT 37.5 % (36.0-48.0); HEMOGLOBIN 12.6 g/dL (12-16); IMMATURE GRANULOCYTES 0.2 % (0-5); LYMPHOCYTES 34.3 % (15-50); MCH 31.9 pg (26.0-34.0); MCHC 33.6 g/dL (31.0-37.0); MCV 94.9 fL (80.0-100.0); MEAN PLATELET VOLUME 10.1 fL (7.4-10.4); MONOCYTES 7.6 % (2-11); NEUTROPHILS 56.9 % (40-80); PLATELET COUNT 205 10x3/uL (130-400); RBC 3.95 10x6/uL (4.00-5.40); WBC 8.7 10x3/uL (4.8-10.8)
[2020-03-10 07:41] LABS: CALC OSMOLALITY 260 mosm/kg (275-300); CALCIUM 8.6 mg/dL (8.5-10.1); CHLORIDE - SERUM 104 mmol/L (98-107); CREATININE - SERUM 0.6 mg/dL (0.6-1.3); GLUCOSE 106 mg/dL (74-106); SODIUM 131 mmol/L (136-145); UREA NITROGEN 6 mg/dL (7-18); eGFR NON AFRICAN AMERICAN > 90 mL/min (90-120)
[2020-03-10 07:52] LABS: POTASSIUM - SERUM 3.3 mmol/L (3.5-5.1)
[2020-03-10 08:00] VITALS: BP 170/53
[2020-03-10 08:53] LABS: CKMB 1.9 U/L (0.0-3.6); CREATINE KINASE 118 UL (21-215); TROPONIN-I < 0.017 ng/mL (0.000-0.060)
--- NOTE | 2020-03-10 09:00 | NUR ---
PT GIVEN BREAKFAST TRAY AT THIS TIME, FAMILY AT THE BEDSIDE, NO ACUTE DISTRESS NOTED
[2020-03-10 09:15] LABS: CKMB 1.9 U/L (0.0-3.6); TROPONIN-I < 0.017 ng/mL (0.000-0.060)
[2020-03-10 12:00] VITALS: BP 157/57
[2020-03-10] MEDS ORDERED: ZOFRAN ODT4 MG/UDTAB PO (17:04)
[2020-03-10] MEDS ORDERED: PROTONIX40 MG PO (17:04)
== END 2020-03-10 17:30 | disposition home or self-care (01) ==
LOC: D.ER 18:50 → OBSVTIME 21:51 → D.EDHOLD 21:51
PROVIDERS: Family Medicine; ADMIT Emergency Medicine; ATTEND Emergency Medicine
DX: R07.9 Chest pain, unspecified (principal); I10 Essential (primary) hypertension; I25.10 Atherosclerotic heart disease of native coronary artery without angina pectoris; Z95.1 Presence of aortocoronary bypass graft; R11.2 Nausea with vomiting, unspecified; R10.13 Epigastric pain; E03.9 Hypothyroidism, unspecified; I25.2 Old myocardial infarction; F41.9 Anxiety disorder, unspecified; F32.9 Major depressive disorder, single episode, unspecified; E78.5 Hyperlipidemia, unspecified; E86.0 Dehydration